=== PATIENT | female | born 1940 | race African-American/Black ===

== ENCOUNTER 2019-07-14 10:45 | Outpatient (CLI) | payer MEDICARE, MEDICAID ==
--- NOTE | 2019-07-15 08:49 | MMO ---
Bilateral MAMMO Bilat Screen [facility]. CLINICAL HISTORY: Patient is 79 years old and is seen for screening. The patient has no family history of breast cancer. The patient has a history of colon cancer 2008. VIEWS: The views performed were: bilateral craniocaudal with tomosynthesis and bilateral mediolateral oblique with tomosynthesis. FILMS COMPARED: The present examination has been compared to a prior imaging study performed at [facility] on 02/03/2008. This study has been interpreted with the assistance of computer-aided detection. MAMMOGRAM FINDINGS: The breasts are heterogeneously dense, which could obscure a lesion on mammography. There are no suspicious masses, suspicious calcifications, or new areas of architectural distortion. IMPRESSION: THERE IS NO MAMMOGRAPHIC EVIDENCE OF MALIGNANCY. A ROUTINE FOLLOW-UP MAMMOGRAM IN 1 YEAR IS RECOMMENDED. THE RESULTS OF THIS EXAM WERE SENT TO THE PATIENT. ACR BI-RADS Category 1 - Negative MAMMOGRAPHY NOTE: 1. A negative mammogram report should not delay a biopsy if a dominant of clinically suspicious mass is present. 2. Approximately 10% to 15% of breast cancers are not detected by mammography. 3. Adenosis and dense breasts may obscure an underlying neoplasm. Reported by: Luz Maria CALDWELL Electonically Signed: [id number]
== END 2019-07-14 10:46 | disposition home or self-care (01) ==
LOC: BICMAMMO 10:45
PROVIDERS: ATTEND Family Medicine
DX: Z12.31 Encounter for screening mammogram for malignant neoplasm of breast (principal); Z85.038 Personal history of other malignant neoplasm of large intestine
CPT/HCPCS: 77063; 77067

== ENCOUNTER 2020-05-03 09:32 | Inpatient (IN) | payer MEDICARE, MEDICAID ==
[2020-05-03 10:15] LABS: #Lymphocytes 1.3 thou/uL (1.20-3.40); #Monocytes 0.8 thou/uL (0.11-0.59); %Basophils 0.2 % (0.0-1.0); %Eosinophils 0.2 % (0.0-10.0); %Lymphocytes 9.9 % (21.0-51.0); %Monocytes 5.9 % (0.0-10.0); %Neutrophils 83.9 % (42.0-75.0); Hemoglobin 14.5 g/dL (12.0-16.0); Mean Corpuscular HGB CONC 32.5 g/dL (32.0-36.0); Mean Corpuscular Hemoglobin 27.7 pg (27.0-31.0); Mean Corpuscular Volume 85.3 fL (78.0-98.0); Mean Platelet Volume 8.9 fL (7.4-10.4); Platelet Count 233 thou/uL (130-400); RBC Distribution Width 13.3 % (11.5-14.5); Red Blood Cell (RBC) Count 5.23 mill/uL (4.20-5.40); White Blood Cell (WBC) Count 13.1 thou/uL (4.8-10.8)
--- NOTE | 2020-05-03 10:16 | RAD ---
EXAM: Single view of the chest HISTORY: Altered mental status COMPARISON: 09/12/2013 FINDINGS: Single view of the chest shows a normal sized cardiomediastinal silhouette. A right-sided Mediport is seen with its tip in the superior vena cava. There is a stable calcified granuloma in the left lung base. No infiltrates or pleural effusions are seen. The bones are unremarkable IMPRESSION: No evidence of acute cardiopulmonary disease
[2020-05-03] MEDS ORDERED: cefTRIAXone\\ROCEPHIN 2 GM VIAL ONE (10:26)
[2020-05-03 10:34] LABS: Bacteria/HPF 4+ HPF (None Seen); Bilirubin Negative (Negative); Blood, Urine 2+ (Negative); Clarity Extra Turbid (Clear); Glucose, Urine (Dipstick) Normal (Negative); Ketone, Urine Trace mg/dL (Negative); Leukocyte 500 Leu/uL (Negative); Nitrite Negative (Negative); Protein, Urine (Dipstick) 300 mg/dL (Neg-Trace); RBC/HPF Greater than 50 HPF (0-3); Specific Gravity, Urine 1.015 (1.002-1.036); Squamous Epithelial None Seen HPF (0-3); Urobilinogen Normal mg/dL (Less than 2); WBC/HPF Greater than 50 HPF (0-3); pH, Urine 6.5 (5.0-9.0)
[2020-05-03 10:40] LABS: ALT (SGPT) 43 U/L (8-55); AST (SGOT) 53 U/L (5-34); Albumin 4.1 g/dL (3.4-4.8); Alkaline Phosphatase 56 U/L (40-110); Anion Gap 24 mmol/L (10-20); Bilirubin, Total 1.6 mg/dL (0.2-1.2); CK (CPK) 863 U/L (29-168); Calc. Creatinine Clearance 0 mL/min (70-130); Carbon Dioxide 16 mmol/L (23-31); Chloride 102 mmol/L (98-107); Estimated GFR-MDRD 12; Globulin 4.5 g/dL (2.4-3.5); Glucose 224 mg/dL (83-110); Potassium 3.8 mmol/L (3.5-5.1); Protein, Total 8.6 g/dL (6.0-8.3); Sodium 138 mmol/L (136-145)
[2020-05-03 10:52] LABS: BUN (Urea Nitrogen) 115 mg/dL (9.8-20.1)
--- NOTE | 2020-05-03 10:52 | CT ---
CT BRAIN WITHOUT CONTRAST: HISTORY: Altered mental status FINDINGS: No evidence of acute infarct, hemorrhage, midline shift or abnormal extra-axial fluid collections is seen. The ventricular size is appropriate and the basilar cisterns are patent. The bony calvarium is intact. The visualized paranasal sinuses and mastoid air cells are well aerated. IMPRESSION: No CT evidence of acute intracranial process.
[2020-05-03] MEDS ORDERED: Aspirin Chewable 81 MG TAB ONE (11:05)
[2020-05-03 11:09] LABS: CKMB 8.2 ng/mL (0-6.6)
[2020-05-03] MEDS ORDERED: Vancomycin HCl 1.75 GM in Sodium Chloride 0.9% 500 ML IVPB SCH (11:30)
[2020-05-03] MEDS ORDERED: Sodium Bicarbonate 150 MEQ in Dextrose 5% in Water 1,000 ML IV SCH (12:00)
[2020-05-03] MEDS ORDERED: Potassium Chloride 20 MEQ TAB PO SCH (12:45)
[2020-05-03] MEDS: Sodium Bicarbonate 150 MEQ in Dextrose 5% in Water 1,000 ML IV SCH (12:45)
--- NOTE | 2020-05-03 12:49 | CT ---
CT ABDOMEN AND PELVIS WITHOUT CONTRAST: Date: 05/03/2020 PROVIDED CLINICAL HISTORY: Altered mental status, shaking, decreased appetite, burning upon urination. FINDINGS: Comparison with 09/12/2013. FINDINGS: There are patchy foci of ground-glass opacity and associated interstitial thickening is seen involvin g the visualized portions of left greater than right lungs. There is conspicuous gallbladder distention without surrounding inflammatory change. The solid abdomi nal organs are suboptimally evaluated in the absence of IV contrast material, but demonstrate an unre markable unenhanced CT appearance. There is no evidence for urinary tract calculi or hydronephrosis. Vascular calcifications along the course of the left ureter simulate ureteral calcifications. Postoperative changes of left lower quadrant colostomy are demonstrated. There is no bowel dilatation , inflammatory fat stranding, free fluid, or free air apparent. The osseous structures demonstrate no concerning lytic or blastic lesions. IMPRESSION: 1. Basilar lung findings compatible with pneumonia and typical for COVID pneumonia. 2. Conspicuous gallbladder distention without evident pericholecystic inflammatory change. Consider gallbladder ultrasound if indicated. 3. Other findings as described. POS: MELISSA
[2020-05-03] MEDS ORDERED: Metoprolol Tartrate 25 MG TAB PO SCH (13:15)
--- NOTE | 2020-05-03 13:40 | NM ---
Radionucleotide lung perfusion scan HISTORY: Dyspnea. FINDINGS: Symmetric uptake with good perfusion gradient. Very small subtle areas of diminished radiot racer uptake project over the superior segment of the right lower lobe and the superior segment of the left lower lobe. They are well below the size of a segment. Ventilation study was not performed. IMPRESSION : Exam is not high probability for pulmonary embolus. Technically it is indeterminate, although with th e CT appearance of COVID pneumonia at the lung bases on recent CT, the perfusion abnormalities are much more likely related to the infiltrates from pneumonitis.
--- NOTE | 2020-05-03 13:45 | RAD ---
Left hip 2 HISTORY: Pain. FINDINGS: Mild joint space narrowing, osteophytosis, and subchondral sclerosis. Slight irregularity o f the articular surface of the femoral head. Cortex is intact. No acute fracture, dislocation, or aggressive osseous erosions. IMPRESSION : Mild osteoarthritic changes left hip.
[2020-05-03 14:32] LABS: SARS-CoV-2 NAA Rapid Test DETECTED (NotDetected)
[2020-05-03 14:37] LABS: Lactic Acid 1.9 mmol/L (0.5-2.2)
[2020-05-03 14:42] LABS: CRP (Inflammatory) 9.72 mg/dL (= or < 0.5)
[2020-05-03 14:46] LABS: Troponin I 0.099 ng/mL (< 0.028)
[2020-05-03] MEDS ORDERED: Metoprolol Tartrate 25 MG TAB ONE (14:49)
[2020-05-03] MEDS: Meropenem 500 MG in Sodium Chloride 0.9% 100 ML IVPB SCH (15:56)
[2020-05-03] MEDS: Heparin 5,000 UNITS/ML VIAL SC SCH ×2 (15:59→19:59)
--- NOTE | 2020-05-03 19:56 | CON ---
DATE OF CONSULTATION: REASON FOR CONSULTATION: COVID infection. HISTORY OF PRESENT ILLNESS: A 80-year-old with history of rectal adenocarcinoma, diagnosed in 2012. The patient had liver mets and I think she was referred to [place]. We do not have records of the treatment, that she had probably low abdominal peritoneal resection and followed by chemotherapy. She still has a port in the right subclavian position and was brought in because of feeling very weak for the past 3 to 4 days and did not have any fever, chills, or headaches. No shortness of breath. No cough. No abdominal pain or diarrhea. No genitourinary symptoms or bleeding. On arrival, BP 118/83, respiratory rate 18, temperature 97.5, O2 saturations were 99 on room air. Other findings included a white cell count of 13.1, hemoglobin 14, platelets 233, and 83% neutrophils. D-dimer greater than 20. Ferritin was 3700. CRP was 9.72. The LDH was 320. She had an abdomen and pelvis CT and showed basilar lung findings, consistent with COVID pneumonia. Some gallbladder distention. The patient had patchy ground-glass opacities and that prompted the COVID test, which was positive. Currently, Ms. Willson is awake and in no distress. She keeps a kind of flexed position of her neck and I thought initially that she would be a difficult to interview, but she has a very sharp and prompt answers to pretty much everything. She denies any headaches and she has no shortness of breath. She has no abdominal symptoms. She is voiding without difficulty. No appendicular symptoms and no neurological symptoms. MEDICAL HISTORY: 1. Stage IV adenocarcinoma of the colorectum, status post low anterior abdominal peritoneal resection in [place] and chemotherapy and this was in 2012, in the face of liver mets. She may have had liver mets resected, not clear to me, but nonetheless she is doing quite well and stated that she is cured or at least in remission. 2. History of hypertension. 3. CKD. 4. Ischemic colitis. 5. Dyslipidemia. ALLERGY HISTORY: Negative. MEDICATION LIST: At the moment, she is on: 1. Meropenem. 2. Folic acid. FAMILY HISTORY: Not available. SOCIAL HISTORY: Never smoker. She lives in [place]. PHYSICAL EXAMINATION: VITAL SIGNS: T-max 97.9, BP 115/68, pulse 101, and respirations 22. SKIN: Normal. The patient has a port in the right subclavian position, which is accessed for at the moment, and she is voiding spontaneously. There is no lymphadenopathy. HEENT: Ocular movements are dysconjugate, chronically so. Oral cavity with no [place] teeth remaining. NECK: Supple. No jugular vein distention. LUNGS: Symmetric air entry. No crackles or wheezing. HEART: S1 and S2. Regular rate. No S3 or S4. ABDOMEN: Soft, not distended or tender. No ascites. No bladder distention. EXTREMITIES: No joint inflammatory activity and no back tenderness. She is able to move extremities. She has 2+ edema in lower extremities. Pulses are 1+ in dorsalis pedis. Plantar responses are flexor. She has somewhat dystonic movements in the neck area. LABORATORY DATA: White cell count has been discussed above and the ferritin was 3700. ASSESSMENT: 1. Colorectal cancer with liver mets, in remission after surgical resection and chemotherapy 7 years ago. 2. Now weakness. 3. Mild leukocytosis with COVID positive status. DISCUSSION: The patient most likely has a COVID infection as the sole cause of her symptoms. I do not think there is evidence to suggest a bacterial infection at this point in time except for abnormal urinalysis, but she is asymptomatic. We will continue with meropenem until tomorrow at least when we get results of cultures. She does not meet criteria for any intervention for COVID, although she does have clinical variables that indicate a high risk for further decompensation in the ensuing days, so she will have to be monitored here for a while and check her inflammatory markers. She could potentially start developing hypoxemia in the next 24 to 48 hours and have to initiate remdesivir and Decadron treatment. She is on heparin t.i.d., probably because of renal function. The reason for renal function decrease is probably some [id number] renal failure associated with the acute illness and hopefully will see improvement going forward. Job ID: [id number]
[2020-05-03] MEDS: Famotidine 20 MG TAB PO SCH (19:58)
[2020-05-03] MEDS: Zinc Sulfate 220 MG CAP PO SCH (19:58)
[2020-05-03] MEDS: Ascorbic Acid 500 mg Chewable Tablet PO SCH (19:58)
[2020-05-03] MEDS: Metoprolol Tartrate 25 MG TAB PO SCH (19:59)
[2020-05-03] MEDS ORDERED: Folic Acid 1 MG TAB PO SCH (21:00)
[2020-05-03] MEDS ORDERED: Famotidine 20 MG TAB PO SCH (21:00)
--- NOTE | 2020-05-03 21:08 | HP ---
PRIMARY CARE PHYSICIAN: Sigifredo Silveira MD CHIEF COMPLAINT: Weakness. HISTORY OF PRESENT ILLNESS: The patient is a 80-year-old female with past medical history significant for hypertension, rectal cancer, urinary continence, and iron deficiency. She presents to the ER today after the daughter said she was not acting right. She states she has in a week had decreased food intake. She did fall 2 nights ago, and was found on the floor next to her bed. The patient states currently she does not have any pain other than hip pain from her fall. No sick contacts. Has not had a fever at home. No abdominal pain. No chest pain. She states normal bowel patterns in her colostomy. Normal urinary patterns. When asked how she feels, she feels tired. She just states that she has been too tired to really eat and drink much. Today in the ER, they gave her a dose of vancomycin, aspirin 324 mg, ceftriaxone, and 2 L of normal saline. They performed a chest x-ray, brain CT, abdomen and pelvis CT, and EKG. PAST MEDICAL HISTORY: Hypertension, ovarian cancer, rectal cancer, arthritis of her knee, insomnia, urinary incontinence, iron deficiency, chronic kidney disease stage 3, and scoliosis. PAST SURGICAL HISTORY: Appendectomy, colostomy, and hysterectomy. ALLERGIES: NO KNOWN DRUG ALLERGIES. MEDICATIONS: 1. Ferrous sulfate 325 mg once daily. 2. Wellbutrin 150 mg daily. 3. Hydrochlorothiazide 25 mg daily. 4. Metoprolol tartrate 25 mg twice a day. SOCIAL HISTORY: The patient lives at home with her granddaughter and two great grand kids. She does not work. She denies any smoking, alcohol, or drug use. FAMILY HISTORY: Father passed at 27 years old. Mother passed at 68 years old after diabetes, heart disease. Sister passed from diabetes. REVIEW OF SYSTEMS: All other review of systems negative unless noted in the HPI. PHYSICAL EXAMINATION: VITAL SIGNS: Blood pressure 120/64, pulse 98, respiratory rate 16, temperature 97.5, and O2 saturation 98% on room air. GENERAL: A pleasant, alert, oriented, in no acute distress. HEENT: Eyes; extraocular muscles intact. No nystagmus. PERRLA. HENT; clear. Nose; clear. No discharge. No lymphadenopathy. Mucous membranes moist. CARDIOVASCULAR: Regular rate and rhythm. No murmurs, no clicks, no rubs. CHEST: MediPort in place on the right side of the chest wall. RESPIRATORY: Clear to auscultation bilaterally. Symmetrical chest rise. No rhonchi, no wheezes, no rales. GASTROINTESTINAL: Soft, nontender. Colostomy bag to the left lower side. NEUROLOGIC: Alert and oriented x3. Cranial nerves 2 through 12 grossly intact. EXTREMITIES: Chronic stasis dermatitis on the right side on the lower extremity , left extremity larger than right with pain upon palpation. LABS AND IMAGING DATA: The brain CT by my review showed no CT evidence of any acute intracranial process. EKG by my review showed sinus tach previously at 120. Chest x-ray showed no evidence of acute cardiopulmonary disease. Abdomen and pelvis CT by my review shows basal lung findings compatible with pneumonia and typical for COVID pneumonia conspicuous gallbladder distention without evidence of pericholecystic inflammatory change. Her white blood cells 13.1, neutrophils 83.9. D-dimer greater than 20. Sodium 138, potassium 3.8, carbon dioxide 16, anion gap 24, BUN 115, creatinine 4.1, GFR 12, glucose 224, lactic acid 2.4, total bilirubin 1.6, AST 53, creatine kinase 63, CK-MB 8.2, troponin 0.109. Urine; clarity actually turbid, protein 300, ketones trace, blood 2+, leukocyte esterase 500, urine rbc greater than 50, urine white blood cells greater than 50, 4+ bacteria, no squamous epithelial cells. IMPRESSION AND PLAN: 1. Toxic metabolic encephalopathy, multifactorial. CT of the brain has been negative. Continue neuro checks q.4 hours. Await blood cultures and urine cultures. Recheck labs in the morning. 2. Severe sepsis due to UTI. Continue IV antibiotics. We will renally dose. 3. Acute kidney injury on chronic kidney disease 3. Rule out obstruction. Check postvoid residual. We will use IV hydration. We will hold her hydrochlorothiazide and avoid any nephrotoxic medications. 4. Metabolic acidosis/ lactic acidosis. Continue her on bicarb drip. Recheck labs in the morning. 5. Elevated CK and elevated troponin may be due to dehydration status. The patient denies any chest pain at this time. We will obtain an echo and continue to trend troponins. 6. Hypertension. Restart patient on her home medication, metoprolol, and also on any p.r.n. antihypertensives as needed. We are going to hold her hydrochlorothiazide at this time. 7. Anxiety. 8. Degenerative joint disease. The patient does have a history of arthritic issues. However, she did fall on that left hip 2 nights ago. We will obtain a hip x- ray to ensure there is no fracture. 9. Possible COVID-19. CT shows lung changes that are consistent with covid pneumonitis. It could possibly be the reason her D-dimer is elevated. We will attempt to get a V/Q scan and also venous Doppler on her lower extremities due to her left leg being larger than her right with some pain which she states normally is not swollen. The patient will be placed on heparin 3 times a day for deep venous thrombosis prophylaxis and elevated D-dimer. 10. SCDs will be held at this time due to the swelling. GI prophylaxis includes Pepcid twice a day. The patient wishes to be a full code. Her surrogate decision maker is her granddaughter. The patient has been discussed with Dr. Adams. Pt was seen and examined. Some rhonchi at bases. Labs, A & P reviewed. I agree with the above note. COVID positive. Case d/w daughter. Eliezer Angie Job ID: [id number] MTDD
[2020-05-04] MEDS: Meropenem 500 MG in Sodium Chloride 0.9% 100 ML IVPB SCH ×2 (01:05→14:44)
[2020-05-04] MEDS: Sodium Bicarbonate 150 MEQ in Dextrose 5% in Water 1,000 ML IV SCH ×2 (01:05→09:57)
[2020-05-04 06:24] LABS: #Monocytes 0.8 thou/uL (0.11-0.59); #Neutrophils 7.2 thou/uL (1.40-6.50); %Basophils 0.3 % (0.0-1.0); %Eosinophils 0.4 % (0.0-10.0); %Monocytes 8.8 % (0.0-10.0); %Neutrophils 79.5 % (42.0-75.0); Hemoglobin 12.4 g/dL (12.0-16.0); Mean Corpuscular HGB CONC 33.5 g/dL (32.0-36.0); Mean Corpuscular Hemoglobin 28.6 pg (27.0-31.0); Mean Corpuscular Volume 85.6 fL (78.0-98.0); Mean Platelet Volume 8.7 fL (7.4-10.4); Platelet Count 180 thou/uL (130-400); Red Blood Cell (RBC) Count 4.34 mill/uL (4.20-5.40)
[2020-05-04 06:52] LABS: Anion Gap 17 mmol/L (10-20); BUN (Urea Nitrogen) 88 mg/dL (9.8-20.1); Calc. Creatinine Clearance 20 mL/min (70-130); Calcium 8.1 mg/dL (7.8-10.44); Carbon Dioxide 25 mmol/L (23-31); Chloride 103 mmol/L (98-107); Estimated GFR-MDRD 20; Glucose 190 mg/dL (83-110); Potassium 3.2 mmol/L (3.5-5.1); Sodium 142 mmol/L (136-145)
[2020-05-04 06:56] LABS: ALT (SGPT) 34 U/L (8-55); AST (SGOT) 53 U/L (5-34); Alkaline Phosphatase 46 U/L (40-110); Bilirubin, Direct 0.5 mg/dL (0.1-0.3); Bilirubin, Total 0.8 mg/dL (0.2-1.2); Protein, Total 6.4 g/dL (6.0-8.3)
[2020-05-04] MEDS: Folic Acid 1 MG TAB PO SCH (07:55)
[2020-05-04] MEDS: Heparin 5,000 UNITS/ML VIAL SC SCH ×3 (07:55→21:10)
[2020-05-04] MEDS: Cyanocobalamin (Vitamin B-12) 1,000 MCG TAB PO SCH (07:55)
[2020-05-04] MEDS: Metoprolol Tartrate 25 MG TAB PO SCH ×4 (07:56→21:12)
[2020-05-04] MEDS: Acetaminophen 325 MG TAB PO PRN (08:09)
[2020-05-04] MEDS ORDERED: Prevnar 13-Val Conj/PF 0.5 ML SYRINGE IM ONE (09:00)
[2020-05-04] MEDS ORDERED: Cyanocobalamin (Vitamin B-12) 1,000 MCG TAB PO SCH (09:00)
[2020-05-04] MEDS ORDERED: Sodium Chloride 0.9% 500 ML IV SCH (10:00)
[2020-05-04] MEDS ORDERED: Sodium Chloride 0.9% 1,000 ML IV SCH (10:00)
[2020-05-04] MEDS: Potassium Chloride 10 MEQ in Dextrose 5 % And 0.9 % NaCl 1,000 ML IV SCH ×2 (11:22→21:10)
[2020-05-04] MEDS ORDERED: Potassium Chloride 20 MEQ TAB PO SCH (12:00)
--- NOTE | 2020-05-04 18:55 | PDOC.HOSPP ---
- Subjective Encounter Date: 05/04/20 Encounter Time: 18:00 Subjective: Patient seen and examined for Sepsis/PERRI. Intermittent confusion. Overall mentation improving. No N/V. Poor appetite. No new complaints. No overnight events - Objective Vital Signs & Weight: Vital Signs (12 hours) Temp Pulse Resp BP BP BP BP 05/04/20 17:59 96 96/47 L 05/04/20 17:35 101 H 91/52 L 05/04/20 15:57 99.2 F 91 20 94/59 L 05/04/20 15:43 83/59 L 97/56 L 05/04/20 13:36 95/57 L 05/04/20 11:45 98.4 F 96 22 H 94/51 L 05/04/20 11:34 94/51 L 83/47 L 05/04/20 10:47 82/51 L 05/04/20 10:00 88/50 L 05/04/20 09:45 98.9 F 85 83/49 L 05/04/20 08:09 100.6 F H 105 H 20 98/53 L Pulse Ox 05/04/20 17:59 05/04/20 17:35 05/04/20 15:57 98 05/04/20 15:43 05/04/20 13:36 05/04/20 11:45 96 05/04/20 11:34 05/04/20 10:47 05/04/20 10:00 05/04/20 09:45 05/04/20 08:09 96 Weight Admit Weight 170 lb Weight 170 lb I&O: 05/03/20 05/04/20 05/05/20 06:59 06:59 06:59 Intake Total 2240 2840 Output Total 1275 900 Balance 965 1940 Result Diagrams: 05/05/20 05:13 05/05/20 05:13 Additional Labs: Microbiology 05/03/20 10:17 Venous blood - Right Hand Blood Culture - Preliminary Specimen has been received and culture in progress. No Growth to date. 05/03/20 10:05 Port - Right external jugular vein Blood Culture - Preliminary Specimen has been received and culture in progress. No Growth to date. 05/03/20 09:57 Urine Straight Catheter Urine Culture - Preliminary Laboratory Tests 05/03/20 05/03/20 05/03/20 09:57 10:04 12:41 D-Dimer Greater than 20.00 H Ferritin C-Reactive Protein Urine WBC Greater than 50 A Urine Bacteria 4+ A SARS-CoV-2 Rap RNA(RT-PCR) DETECTED A* 05/03/20 05/03/20 14:10 14:10 D-Dimer Ferritin 3752.41 H C-Reactive Protein 9.72 H Urine WBC Urine Bacteria SARS-CoV-2 Rap RNA(RT-PCR) Radiology Reviewed by me: Yes (CT abd - reviewed) EKG Reviewed by me: Yes (Tele SR) Hospitalist ROS - Review of Systems Respiratory: denies: cough, dry, shortness of breath, hemoptysis, SOB with excertion, pleuritic pain, sputum, wheezing, other Cardiovascular: denies: chest pain, palpitations, orthopnea, paroxysmal noc. dyspnea, edema, light headedness, other - Medication Medications: Active Medications Generic Name Dose Route Start Last Admin Trade Name Freq PRN Reason Stop Dose Admin Acetaminophen 650 mg 05/03/20 12:54 05/04/20 08:09 Tylenol PO 650 mg Q4H PRN Administration Headache/Fever/Mild Pain (1-3) Ascorbic Acid 1,000 mg 05/03/20 21:00 05/03/20 19:58 Vitamin C PO 1,000 mg HS PAMELA Administration Cyanocobalamin 1,000 mcg 05/04/20 09:00 05/04/20 07:55 Vitamin B-12 PO 1,000 mcg DAILY PAMELA Administration Famotidine 20 mg 05/03/20 21:00 05/03/20 19:58 Pepcid PO 20 mg Q24HR PAMELA Administration Folic Acid 1 mg 05/04/20 09:00 05/04/20 07:55 Folvite PO 1 mg DAILY PAMELA Administration Heparin Sodium (Porcine) 5,000 units 05/03/20 15:00 05/04/20 14:44 Heparin SC 5,000 units TID PAMELA Administration Meropenem 500 mg/ Sodium 100 mls @ 200 mls/hr 05/03/20 14:00 05/04/20 14:44 Chloride IVPB 100 mls 0200,1400 PAMELA Administration Potassium Chloride 10 meq/ 1,005 mls @ 125 mls/hr 05/04/20 10:00 05/04/20 11: 22 Dextrose/Sodium Chloride IV 1,005 mls .Q8H3M PAMELA Administration Metoprolol Tartrate 12.5 mg 05/04/20 09:00 05/04/20 10:18 Lopressor PO Not Given BID PAMELA Sodium Chloride 10 ml 05/03/20 21:00 05/04/20 07:57 Flush - Normal Saline IVF 10 ml Q12HR PAMELA Administration Zinc Sulfate 220 mg 05/03/20 21:00 05/03/20 19:58 Zinc Sulfate PO 220 mg HS PAMELA Administration - Exam General Appearance: ill appearing Heart: RRR, no gallops, no rubs, normal peripheral pulses Respiratory: no wheezes, normal chest expansion, rales, rhonchi Gastrointestinal: soft, non-tender, no guarding, no rigidity Extremities: no cyanosis, no clubbing, no edema Extremities - other findings: no calf tenderness Neurological: no new deficit Psychiatric: A&O x 3, somnolent Psychiatric - other findings: with intermittent confusion Hosp A/P - Plan DVT proph w/heparin Toxic metabolic encephalopathy, multifactorial. Severe sepsis due to COVID Pneumonia/UTI - POA PERRI on CKD 3/Dehydration Metabolic acidosis/ lactic acidosis. Elevated CK Hypokalemia HTN Anxiety DJD Gallbladder distention h/o Colon CA PLAN: ID input appreciated DC Bicarb drip Renal function improving Replace Potassium Change IVF to D5NS with 10 meq KCL Cont IV Meropenem Reduce Metoprolol to 12.5 mg BID Monitor LFTs AM labs
[2020-05-04] MEDS: Zinc Sulfate 220 MG CAP PO SCH (21:10)
[2020-05-04] MEDS: Ascorbic Acid 500 mg Chewable Tablet PO SCH (21:10)
[2020-05-04] MEDS: Famotidine 20 MG TAB PO SCH (21:11)
[2020-05-05] MEDS: Meropenem 500 MG in Sodium Chloride 0.9% 100 ML IVPB SCH ×2 (02:40→14:35)
[2020-05-05 05:41] LABS: #Lymphocytes 1.3 thou/uL (1.20-3.40); #Monocytes 0.9 thou/uL (0.11-0.59); #Neutrophils 4.8 thou/uL (1.40-6.50); %Basophils 0.5 % (0.0-1.0); %Eosinophils 0.4 % (0.0-10.0); %Lymphocytes 18.5 % (21.0-51.0); %Monocytes 12.4 % (0.0-10.0); %Neutrophils 68.2 % (42.0-75.0); Hemoglobin 12.6 g/dL (12.0-16.0); Mean Corpuscular HGB CONC 32.7 g/dL (32.0-36.0); Mean Corpuscular Hemoglobin 28.6 pg (27.0-31.0); Mean Corpuscular Volume 87.6 fL (78.0-98.0); Mean Platelet Volume 8.4 fL (7.4-10.4); Platelet Count 177 thou/uL (130-400)
[2020-05-05 06:05] LABS: Anion Gap 13 mmol/L (10-20); BUN (Urea Nitrogen) 54 mg/dL (9.8-20.1); Calc. Creatinine Clearance 30 mL/min (70-130); Calcium 8.1 mg/dL (7.8-10.44); Carbon Dioxide 28 mmol/L (23-31); Chloride 107 mmol/L (98-107); Estimated GFR-MDRD 32; Glucose 160 mg/dL (83-110); Sodium 145 mmol/L (136-145)
[2020-05-05 06:12] LABS: ALT (SGPT) 29 U/L (8-55); AST (SGOT) 46 U/L (5-34); Albumin 2.7 g/dL (3.4-4.8); Alkaline Phosphatase 40 U/L (40-110); Bilirubin, Direct 0.3 mg/dL (0.1-0.3); Bilirubin, Total 0.5 mg/dL (0.2-1.2); Protein, Total 5.8 g/dL (6.0-8.3)
[2020-05-05] MEDS: Potassium Chloride 10 MEQ in Dextrose 5 % And 0.9 % NaCl 1,000 ML IV SCH (06:15)
--- NOTE | 2020-05-05 06:21 | PDOC.HOSPP ---
- Subjective Encounter Date: 05/05/20 Encounter Time: 09:30 Subjective: Patient seen and examined for Sepsis/AMS. Mentation slowly improving. No new focal deficits. No new complaints. No overnight events - Objective Vital Signs & Weight: Vital Signs (12 hours) Temp Pulse Resp BP Pulse Ox 05/04/20 21:10 98.4 F 111 H 18 106/60 97 Weight Admit Weight 170 lb Weight 170 lb I&O: 05/03/20 05/04/20 05/05/20 06:59 06:59 06:59 Intake Total 2240 2840 Output Total 1275 900 Balance 965 1940 Result Diagrams: 05/05/20 05:13 05/05/20 05:13 Additional Labs: Laboratory Tests 05/05/20 05/05/20 05/05/20 03:30 05:13 05:13 D-Dimer 9.56 H Ferritin 2991.22 H C-Reactive Protein 7.50 H Microbiology 05/03/20 10:17 Venous blood - Right Hand Blood Culture - Preliminary Specimen has been received and culture in progress. No Growth to date. 05/03/20 10:05 Port - Right external jugular vein Blood Culture - Preliminary Specimen has been received and culture in progress. No Growth to date. 05/03/20 09:57 Urine Straight Catheter Urine Culture - Preliminary EKG Reviewed by me: Yes (Tele SR) Hospitalist ROS - Review of Systems Respiratory: denies: cough, dry, shortness of breath, hemoptysis, SOB with excertion, pleuritic pain, sputum, wheezing, other Cardiovascular: denies: chest pain, palpitations, orthopnea, paroxysmal noc. dyspnea, edema, light headedness, other - Medication Medications: Active Medications Generic Name Dose Route Start Last Admin Trade Name Freq PRN Reason Stop Dose Admin Acetaminophen 650 mg 05/03/20 12:54 05/04/20 08:09 Tylenol PO 650 mg Q4H PRN Administration Headache/Fever/Mild Pain (1-3) Ascorbic Acid 1,000 mg 05/03/20 21:00 05/04/20 21:10 Vitamin C PO 1,000 mg HS PAMELA Administration Cyanocobalamin 1,000 mcg 05/04/20 09:00 05/04/20 07:55 Vitamin B-12 PO 1,000 mcg DAILY PAMELA Administration Famotidine 20 mg 05/03/20 21:00 05/04/20 21:11 Pepcid PO 20 mg Q24HR PAMELA Administration Folic Acid 1 mg 05/04/20 09:00 05/04/20 07:55 Folvite PO 1 mg DAILY PAMELA Administration Heparin Sodium (Porcine) 5,000 units 05/03/20 15:00 05/04/20 21:10 Heparin SC 5,000 units TID PAMELA Administration Meropenem 500 mg/ Sodium 100 mls @ 200 mls/hr 05/03/20 14:00 05/05/20 02:40 Chloride IVPB 100 mls 0200,1400 PAMELA Administration Metoprolol Tartrate 12.5 mg 05/04/20 09:00 05/04/20 21:12 Lopressor PO Not Given BID PAMELA Sodium Chloride 10 ml 05/03/20 21:00 05/04/20 21:11 Flush - Normal Saline IVF 10 ml Q12HR PAMELA Administration Zinc Sulfate 220 mg 05/03/20 21:00 05/04/20 21:10 Zinc Sulfate PO 220 mg HS PAMELA Administration - Exam General Appearance: ill appearing Heart: RRR, no gallops, no rubs Respiratory: no rales, normal chest expansion, rhonchi Gastrointestinal: soft, non-tender, normal bowel sounds, no guarding, no rigidity Neurological: no new deficit Psychiatric: somnolent Hosp A/P - Plan plan discussed w/ family, PT/OT, speech therapy, respiratory therapy, DVT proph w/heparin Toxic metabolic encephalopathy, multifactorial Severe sepsis due to COVID Pneumonia/UTI PERRI on CKD 3/Dehydration -improving Metabolic acidosis/ lactic acidosis Elevated CK Hypokalemia HTN Anxiety DJD Gallbladder distention h/o Colon CA Swallow dysfunction - on modified diet PLAN: Change IVF to D5 1/2NS with 40 meq KCL @ 50 Replace Potassium Cont IV Meropenem - dose adjusted for renal function Urine cultures pending Cont Metoprolol 12.5 mg BID AM labs including CK GB USG when COVID resolved SNF Eval Update: Pt has persistent low BP. Will add low dose steroids for possible relative adrenal insufficiency.
[2020-05-05] MEDS: Heparin 5,000 UNITS/ML VIAL SC SCH ×3 (07:57→19:40)
[2020-05-05] MEDS: Folic Acid 1 MG TAB PO SCH (07:59)
[2020-05-05] MEDS: D5 1/2 NS w/40 mEq KCL 1,000 ML IV SCH (07:59)
[2020-05-05] MEDS: Cyanocobalamin (Vitamin B-12) 1,000 MCG TAB PO SCH (07:59)
[2020-05-05] MEDS: Metoprolol Tartrate 25 MG TAB PO SCH ×2 (07:59→20:21)
[2020-05-05] MEDS: Acetaminophen 325 MG TAB PO PRN (14:45)
[2020-05-05] MEDS ORDERED: Sodium Chloride 0.9% 500 ML IV SCH (16:30)
[2020-05-05] MEDS: Dexamethasone 4 MG TAB PO SCH (16:53)
[2020-05-05] MEDS: Zinc Sulfate 220 MG CAP PO SCH (19:41)
[2020-05-05] MEDS: Ascorbic Acid 500 mg Chewable Tablet PO SCH (19:41)
[2020-05-05] MEDS ORDERED: Famotidine 20 MG TAB PO SCH (21:00)
[2020-05-06] MEDS: Meropenem 500 MG in Sodium Chloride 0.9% 100 ML IVPB SCH ×2 (00:56→15:01)
[2020-05-06] MEDS: D5 1/2 NS w/40 mEq KCL 1,000 ML IV SCH ×2 (00:57→23:56)
[2020-05-06 05:29] LABS: #Monocytes 0.3 thou/uL (0.11-0.59); #Neutrophils 6.8 thou/uL (1.40-6.50); %Basophils 0.1 % (0.0-1.0); %Eosinophils 0.3 % (0.0-10.0); %Monocytes 3.4 % (0.0-10.0); %Neutrophils 84.2 % (42.0-75.0); Hemoglobin 11.5 g/dL (12.0-16.0); Mean Corpuscular HGB CONC 34.4 g/dL (32.0-36.0); Mean Corpuscular Hemoglobin 30.1 pg (27.0-31.0); Mean Corpuscular Volume 87.6 fL (78.0-98.0); Mean Platelet Volume 8.4 fL (7.4-10.4); Platelet Count 178 thou/uL (130-400); Red Blood Cell (RBC) Count 3.83 mill/uL (4.20-5.40); White Blood Cell (WBC) Count 8.1 thou/uL (4.8-10.8)
[2020-05-06 05:47] LABS: Anion Gap 11 mmol/L (10-20); BUN (Urea Nitrogen) 38 mg/dL (9.8-20.1); Calc. Creatinine Clearance 37 mL/min (70-130); Carbon Dioxide 26 mmol/L (23-31); Chloride 110 mmol/L (98-107); Estimated GFR-MDRD 39; Glucose 194 mg/dL (83-110); Potassium 3.9 mmol/L (3.5-5.1); Sodium 143 mmol/L (136-145)
[2020-05-06 05:53] LABS: ALT (SGPT) 37 U/L (8-55); AST (SGOT) 54 U/L (5-34); Albumin 2.5 g/dL (3.4-4.8); Alkaline Phosphatase 55 U/L (40-110); Bilirubin, Direct 0.2 mg/dL (0.1-0.3); Bilirubin, Total 0.3 mg/dL (0.2-1.2); CK (CPK) 184 U/L (29-168); Protein, Total 5.3 g/dL (6.0-8.3)
[2020-05-06] MEDS: Dexamethasone 4 MG TAB PO SCH ×2 (08:34→15:01)
[2020-05-06] MEDS: Multivit, Therapeutic 1 TAB PO SCH (08:34)
[2020-05-06] MEDS: Cyanocobalamin (Vitamin B-12) 1,000 MCG TAB PO SCH (08:34)
[2020-05-06] MEDS: Heparin 5,000 UNITS/ML VIAL SC SCH ×3 (08:34→20:52)
[2020-05-06] MEDS: Folic Acid 1 MG TAB PO SCH (08:34)
--- NOTE | 2020-05-06 08:54 | PDOC.HOSPP ---
- Subjective Encounter Date: 05/06/20 Encounter Time: 16:30 Subjective: Patient seen and examined for Sepsis/COVID. Mentation slowly improving. No new complaints. No overnight events - Objective Vital Signs & Weight: Vital Signs (12 hours) Temp Pulse Resp BP Pulse Ox 05/06/20 05:09 98.7 F 92 16 111/63 97 05/06/20 01:32 102 H 100/59 L 05/06/20 01:03 100 20 100/56 L 05/05/20 21:48 108/58 L Weight Admit Weight 170 lb Weight 177 lb 12.8 oz I&O: 05/05/20 05/06/20 05/07/20 06:59 06:59 06:59 Intake Total 4265 3316 Output Total 2225 1000 Balance 2040 2316 Result Diagrams: 05/07/20 04:40 05/07/20 04:40 Additional Labs: Microbiology 05/03/20 10:17 Venous blood - Right Hand Blood Culture - Preliminary NO GROWTH AT 48 HOURS 05/03/20 10:05 Port - Right external jugular vein Blood Culture - Preliminary NO GROWTH AT 48 HOURS 05/03/20 09:57 Urine Straight Catheter Urine Culture - Preliminary Gram Negative Alf Gram Negative Alf#2 Laboratory Tests 05/06/20 05:05 Creatine Kinase 184 H EKG Reviewed by me: Yes (Tele SR) Hospitalist ROS - Review of Systems Cardiovascular: denies: chest pain, palpitations, orthopnea, paroxysmal noc. dyspnea, edema, light headedness, other Gastrointestinal: denies: nausea, vomiting, abdominal pain, diarrhea, constipation, melena, hematochezia, other - Medication Medications: Active Medications Generic Name Dose Route Start Last Admin Trade Name Freq PRN Reason Stop Dose Admin Acetaminophen 650 mg 05/03/20 12:54 05/05/20 14:45 Tylenol PO 650 mg Q4H PRN Administration Headache/Fever/Mild Pain (1-3) Ascorbic Acid 1,000 mg 05/03/20 21:00 05/05/20 19:41 Vitamin C PO 1,000 mg HS PAMELA Administration Cyanocobalamin 1,000 mcg 05/06/20 09:00 05/06/20 08:34 Vitamin B-12 PO 1,000 mcg DAILY PAMELA Administration Dexamethasone 2 mg 05/05/20 17:00 05/06/20 08:34 Decadron PO 2 mg BID-WM PAMELA Administration Folic Acid 1 mg 05/06/20 09:00 05/06/20 08:34 Folvite PO 1 mg DAILY PAMELA Administration Heparin Sodium (Porcine) 5,000 units 05/03/20 15:00 05/06/20 08:34 Heparin SC 5,000 units TID PAMELA Administration Meropenem 500 mg/ Sodium 100 mls @ 200 mls/hr 05/03/20 14:00 05/06/20 00:56 Chloride IVPB 100 mls 0200,1400 PAMELA Administration Potassium Chloride/Dextrose/Sod Cl 1,000 mls @ 50 mls/hr 05/05/20 06:30 05/06 00:57 D5 1/2 Ns W/40 Meq Kcl IV 1,000 mls .Q20H PAMELA Administration Metoprolol Tartrate 12.5 mg 05/04/20 09:00 05/05/20 20:21 Lopressor PO Not Given BID PAMELA Multivitamins 1 tab 05/06/20 09:00 05/06/20 08:34 Theragran PO 1 tab DAILY PAMELA Administration Sodium Chloride 10 ml 05/03/20 21:00 05/06/20 08:35 Flush - Normal Saline IVF 10 ml Q12HR PAMELA Administration Zinc Sulfate 220 mg 05/03/20 21:00 05/05/20 19:41 Zinc Sulfate PO 220 mg HS PAMELA Administration - Exam General Appearance: ill appearing Neck: supple, no JVD Heart: no gallops, no rubs Respiratory: no wheezes, normal chest expansion, rhonchi Gastrointestinal: soft, non-tender Extremities: no cyanosis, no clubbing Hosp A/P - Plan DVT proph w/heparin, DVT proph w/SCDs Toxic metabolic encephalopathy, multifactorial Severe sepsis due to COVID Pneumonia/UTI PERRI on CKD 3/Dehydration -improving Metabolic acidosis/ lactic acidosis Relative adrenal insufficiency Elevated CK Hypokalemia HTN Anxiety DJD Gallbladder distention h/o Colon CA Swallow dysfunction - on modified diet PLAN: 05/06 Cont current IVF Await urine cultures AM labs including markers Cont other meds Cont Steroids 05/05 Change IVF to D5 1/2NS with 40 meq KCL @ 50 Replace Potassium Cont IV Meropenem - dose adjusted for renal function Urine cultures pending Cont Metoprolol 12.5 mg BID AM labs including CK GB USG when COVID resolved SNF Eval Update: Pt has persistent low BP. Will add low dose steroids for possible relative adrenal insufficiency.
[2020-05-06] MEDS: Metoprolol Tartrate 25 MG TAB PO SCH ×2 (09:05→21:28)
--- NOTE | 2020-05-06 17:29 | PRG ---
DATE OF SERVICE: 05/06/2020 SUBJECTIVE: Ms. Willson is saturating at 96% on room air. She feels okay, but keeps her head down. I asked her if she was depressed, she said no, that is how she is like. She is not vomiting. No abdominal pain. OBJECTIVE: VITAL SIGNS: T-max 98.6. She is saturating at 96% on room air. LUNGS: Clear. HEART: S1 and S2, regular rate. ABDOMEN: Soft, not distended. LABORATORY DATA: White cell count 8.1 and platelets 178. D-dimer down to 9.6. Ferritin is down and CRP is down as well. Currently, she is on Decadron. 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 We will go ahead and continue not intervening with any specific COVID medication and will discontinue meropenem. Maybe she can go home soon. In that case, I would discontinue Decadron. Job ID: [id number]
[2020-05-06] MEDS: Famotidine 20 MG TAB PO SCH (20:52)
[2020-05-06] MEDS: Ascorbic Acid 500 mg Chewable Tablet PO SCH (20:53)
[2020-05-06] MEDS: Zinc Sulfate 220 MG CAP PO SCH (20:53)
[2020-05-07 04:51] LABS: #Lymphocytes 1.4 thou/uL (1.20-3.40); #Monocytes 0.8 thou/uL (0.11-0.59); #Neutrophils 9.3 thou/uL (1.40-6.50); %Basophils 0.1 % (0.0-1.0); %Eosinophils 0.2 % (0.0-10.0); %Lymphocytes 11.9 % (21.0-51.0); %Monocytes 6.7 % (0.0-10.0); %Neutrophils 81.2 % (42.0-75.0); Hemoglobin 10.4 g/dL (12.0-16.0); Mean Corpuscular HGB CONC 32.4 g/dL (32.0-36.0); Mean Corpuscular Hemoglobin 28.4 pg (27.0-31.0); Mean Corpuscular Volume 87.7 fL (78.0-98.0); Mean Platelet Volume 8.4 fL (7.4-10.4); Platelet Count 193 thou/uL (130-400); RBC Distribution Width 12.9 % (11.5-14.5); Red Blood Cell (RBC) Count 3.66 mill/uL (4.20-5.40); White Blood Cell (WBC) Count 11.4 thou/uL (4.8-10.8)
[2020-05-07 05:09] LABS: ALT (SGPT) 46 U/L (8-55); AST (SGOT) 71 U/L (5-34); Albumin 2.5 g/dL (3.4-4.8); Alkaline Phosphatase 56 U/L (40-110); Anion Gap 10 mmol/L (10-20); BUN (Urea Nitrogen) 33 mg/dL (9.8-20.1); Bilirubin, Total 0.4 mg/dL (0.2-1.2); CRP (Inflammatory) 2.85 mg/dL (= or < 0.5); Calc. Creatinine Clearance 42 mL/min (70-130); Calcium 7.9 mg/dL (7.8-10.44); Carbon Dioxide 26 mmol/L (23-31); Chloride 107 mmol/L (98-107); Estimated GFR-MDRD 45; Globulin 2.7 g/dL (2.4-3.5); Glucose 143 mg/dL (83-110); Potassium 4.4 mmol/L (3.5-5.1); Protein, Total 5.2 g/dL (6.0-8.3); Sodium 139 mmol/L (136-145)
[2020-05-07] MEDS: Dexamethasone 4 MG TAB PO SCH ×2 (09:17→17:13)
[2020-05-07] MEDS: Cyanocobalamin (Vitamin B-12) 1,000 MCG TAB PO SCH (09:17)
[2020-05-07] MEDS: Heparin 5,000 UNITS/ML VIAL SC SCH ×3 (09:17→21:11)
[2020-05-07] MEDS: Multivit, Therapeutic 1 TAB PO SCH (09:17)
[2020-05-07] MEDS: Folic Acid 1 MG TAB PO SCH (09:17)
--- NOTE | 2020-05-07 09:31 | PDOC.HOSPP ---
- Subjective Encounter Date: 05/07/20 Encounter Time: 13:00 Subjective: Patient seen and examined for resp failure/Pneumonia. Feeling slightly better. No new complaints. No overnight events - Objective Vital Signs & Weight: Vital Signs (12 hours) Temp Pulse Resp BP Pulse Ox 05/07/20 04:00 98.3 F 90 14 116/73 97 05/07/20 00:10 91 99/60 Weight Admit Weight 170 lb Weight 177 lb 12.8 oz I&O: 05/06/20 05/07/20 05/08/20 06:59 06:59 06:59 Intake Total 3316 2230 Output Total 1000 1350 Balance 2316 880 Result Diagrams: 05/07/20 04:40 05/07/20 04:40 Additional Labs: Microbiology 05/03/20 10:17 Venous blood - Right Hand Blood Culture - Preliminary NO GROWTH AT 48 HOURS 05/03/20 10:05 Port - Right external jugular vein Blood Culture - Preliminary NO GROWTH AT 48 HOURS 05/03/20 09:57 Urine Straight Catheter Urine Culture - Preliminary Gram Negative Alf Proteus mirabilis Granulicatella adiacens EKG Reviewed by me: Yes (Tele SR) Hospitalist ROS - Review of Systems Respiratory: denies: cough, dry, shortness of breath, hemoptysis, SOB with excertion, pleuritic pain, sputum, wheezing, other Cardiovascular: denies: chest pain, palpitations, orthopnea, paroxysmal noc. dyspnea, edema, light headedness, other - Medication Medications: Active Medications Generic Name Dose Route Start Last Admin Trade Name Freq PRN Reason Stop Dose Admin Acetaminophen 650 mg 05/03/20 12:54 05/05/20 14:45 Tylenol PO 650 mg Q4H PRN Administration Headache/Fever/Mild Pain (1-3) Ascorbic Acid 1,000 mg 05/03/20 21:00 05/06/20 20:53 Vitamin C PO 1,000 mg HS PAMELA Administration Cyanocobalamin 1,000 mcg 05/06/20 09:00 05/07/20 09:17 Vitamin B-12 PO 1,000 mcg DAILY PAMELA Administration Dexamethasone 2 mg 05/05/20 17:00 05/07/20 09:17 Decadron PO 2 mg BID-WM PAMELA Administration Famotidine 20 mg 05/06/20 21:00 05/06/20 20:52 Pepcid PO 20 mg QPM PAMELA Administration Folic Acid 1 mg 05/06/20 09:00 05/07/20 09:17 Folvite PO 1 mg DAILY PAMELA Administration Heparin Sodium (Porcine) 5,000 units 05/03/20 15:00 05/07/20 09:17 Heparin SC 5,000 units TID PAMELA Administration Metoprolol Tartrate 12.5 mg 05/04/20 09:00 05/06/20 21:28 Lopressor PO Not Given BID PAMELA Multivitamins 1 tab 05/06/20 09:00 05/07/20 09:17 Theragran PO 1 tab DAILY PAMELA Administration Sodium Chloride 10 ml 05/03/20 21:00 05/06/20 20:55 Flush - Normal Saline IVF 10 ml Q12HR PAMELA Administration Zinc Sulfate 220 mg 05/03/20 21:00 05/06/20 20:53 Zinc Sulfate PO 220 mg HS PAMELA Administration - Exam General Appearance: ill appearing Heart: RRR, no gallops Respiratory: normal chest expansion, rales, rhonchi Gastrointestinal: non-tender, non-distended, no guarding, no rigidity Extremities: no cyanosis Hosp A/P - Plan DVT proph w/lovenox, GI proph Toxic metabolic encephalopathy, multifactorial Severe sepsis due to COVID Pneumonia/UTI PERRI on CKD 3/Dehydration -improving Metabolic acidosis/ lactic acidosis Relative adrenal insufficiency Elevated CK Hypokalemia HTN Anxiety DJD Gallbladder distention h/o Colon CA Swallow dysfunction - on modified diet PLAN: 05/07 DC IVF Meropenem dced per ID Start Ceftriaxone for for UTI - will change to PO at dc SNF eval Cont Dexamethasone - reduce dose DC to SNF when accepted - stable to dc 05/06 Cont current IVF Await urine cultures AM labs including markers Cont other meds Cont Steroids 05/05 Change IVF to D5 1/2NS with 40 meq KCL @ 50 Replace Potassium Cont IV Meropenem - dose adjusted for renal function Urine cultures pending Cont Metoprolol 12.5 mg BID AM labs including CK GB USG when COVID resolved SNF Eval Update: Pt has persistent low BP. Will add low dose steroids for possible relative adrenal insufficiency.
[2020-05-07] MEDS: Metoprolol Tartrate 25 MG TAB PO SCH ×2 (11:58→21:10)
[2020-05-07] MEDS: cefTRIAXone\\ROCEPHIN 1 GM in Sodium Chloride 0.9% 100 ML IVPB SCH (11:58)
[2020-05-07] MEDS: Famotidine 20 MG TAB PO SCH (21:09)
[2020-05-07] MEDS: Ascorbic Acid 500 mg Chewable Tablet PO SCH (21:09)
[2020-05-07] MEDS: Zinc Sulfate 220 MG CAP PO SCH (21:10)
[2020-05-08 05:59] LABS: #Lymphocytes 1.3 thou/uL (1.20-3.40); #Monocytes 0.8 thou/uL (0.11-0.59); #Neutrophils 10.2 thou/uL (1.40-6.50); %Basophils 0.3 % (0.0-1.0); %Eosinophils 0.3 % (0.0-10.0); %Lymphocytes 10.8 % (21.0-51.0); %Monocytes 6.1 % (0.0-10.0); %Neutrophils 82.6 % (42.0-75.0); Hemoglobin 10.8 g/dL (12.0-16.0); Mean Corpuscular HGB CONC 32.1 g/dL (32.0-36.0); Mean Corpuscular Hemoglobin 28.1 pg (27.0-31.0); Mean Corpuscular Volume 87.8 fL (78.0-98.0); Mean Platelet Volume 8.8 fL (7.4-10.4); Platelet Count 218 thou/uL (130-400); RBC Distribution Width 12.9 % (11.5-14.5); Red Blood Cell (RBC) Count 3.84 mill/uL (4.20-5.40); White Blood Cell (WBC) Count 12.3 thou/uL (4.8-10.8)
[2020-05-08 06:20] LABS: ALT (SGPT) 134 U/L (8-55); AST (SGOT) 196 U/L (5-34); Albumin 2.7 g/dL (3.4-4.8); Alkaline Phosphatase 117 U/L (40-110); Anion Gap 12 mmol/L (10-20); BUN (Urea Nitrogen) 36 mg/dL (9.8-20.1); Bilirubin, Total 0.3 mg/dL (0.2-1.2); Calc. Creatinine Clearance 46 mL/min (70-130); Calcium 8.6 mg/dL (7.8-10.44); Carbon Dioxide 27 mmol/L (23-31); Chloride 105 mmol/L (98-107); Estimated GFR-MDRD 50; Globulin 3.1 g/dL (2.4-3.5); Glucose 152 mg/dL (83-110); Protein, Total 5.8 g/dL (6.0-8.3); Sodium 139 mmol/L (136-145)
[2020-05-08] MEDS: Dexamethasone 4 MG TAB PO SCH (08:32)
[2020-05-08] MEDS: Heparin 5,000 UNITS/ML VIAL SC SCH ×2 (08:32→14:31)
[2020-05-08] MEDS: Multivit, Therapeutic 1 TAB PO SCH (08:32)
[2020-05-08] MEDS: Saccharomyces boulardii 250 MG CAP PO SCH (08:32)
[2020-05-08] MEDS: Cyanocobalamin (Vitamin B-12) 1,000 MCG TAB PO SCH (08:33)
[2020-05-08] MEDS: Folic Acid 1 MG TAB PO SCH (08:33)
[2020-05-08] MEDS: Metoprolol Tartrate 25 MG TAB PO SCH ×2 (08:56→22:05)
[2020-05-08] MEDS: cefTRIAXone\\ROCEPHIN 1 GM in Sodium Chloride 0.9% 100 ML IVPB SCH (11:08)
[2020-05-08] MEDS ORDERED: Acetaminophen 325 MG TAB PO PRN (16:41)
--- NOTE | 2020-05-08 18:49 | PDOC.HOSPP ---
- Subjective Encounter Date: 05/08/20 Encounter Time: 17:30 Subjective: Patient seen and examined for altered mentation with COVID infection. Mentation has significantly improved. She denies any chest pain shortness of breath palpitations nausea vomiting. Appetite is improving. - Objective Vital Signs & Weight: Vital Signs (12 hours) Temp Pulse Resp BP Pulse Ox 05/08/20 16:40 98.6 F 78 18 110/59 L 97 05/08/20 12:00 97.9 F 96 18 102/57 L 100 05/08/20 08:45 97.8 F 87 18 116/68 99 05/08/20 08:00 99 Weight Admit Weight 170 lb Weight 177 lb 12.8 oz I&O: 05/07/20 05/08/20 05/09/20 06:59 06:59 06:59 Intake Total 2230 1160 960 Output Total 1350 1450 1000 Balance 880 290 -40 Result Diagrams: 05/08/20 04:55 05/08/20 04:55 Additional Labs: Microbiology 05/03/20 10:17 Venous blood - Right Hand Blood Culture - Final NO GROWTH IN 5 DAYS 05/03/20 10:05 Port - Right external jugular vein Blood Culture - Final NO GROWTH IN 5 DAYS 05/03/20 09:57 Urine Straight Catheter Urine Culture - Final Proteus mirabilis Granulicatella adiacens Laboratory Tests 05/07/20 05/07/20 05/07/20 04:40 04:40 04:40 D-Dimer 10.14 H Ferritin 2322.54 H AST ALT Alkaline Phosphatase C-Reactive Protein 2.85 H 05/08/20 04:55 D-Dimer Ferritin AST 196 H ALT 134 H Alkaline Phosphatase 117 H C-Reactive Protein EKG Reviewed by me: Yes (Sinus rhythm) Hospitalist ROS - Review of Systems Respiratory: denies: cough, dry, shortness of breath, hemoptysis, SOB with excertion, pleuritic pain, sputum, wheezing, other Cardiovascular: denies: chest pain, palpitations, orthopnea, paroxysmal noc. dyspnea, edema, light headedness, other - Medication Medications: Active Medications Generic Name Dose Route Start Last Admin Trade Name Freq PRN Reason Stop Dose Admin Ascorbic Acid 1,000 mg 05/03/20 21:00 05/07/20 21:09 Vitamin C PO 1,000 mg HS PAMELA Administration Cyanocobalamin 1,000 mcg 05/06/20 09:00 05/08/20 08:33 Vitamin B-12 PO 1,000 mcg DAILY PAMELA Administration Dexamethasone 2 mg 05/08/20 08:00 05/08/20 08:32 Decadron PO 2 mg QAM-WM PAMELA Administration Famotidine 20 mg 05/06/20 21:00 05/07/20 21:09 Pepcid PO 20 mg QPM PAMELA Administration Folic Acid 1 mg 05/06/20 09:00 05/08/20 08:33 Folvite PO 1 mg DAILY PAMELA Administration Metoprolol Tartrate 12.5 mg 05/04/20 09:00 05/08/20 08:56 Lopressor PO Not Given BID [facility] Multivitamins 1 tab 05/06/20 09:00 05/08/20 08:32 Theragran PO 1 tab DAILY PAMELA Administration Saccharomyces Boulardii 250 mg 05/08/20 09:00 05/08/20 08:32 Florastor PO 250 mg DAILY PAMELA Administration Sodium Chloride 10 ml 05/03/20 21:00 05/08/20 08:33 Flush - Normal Saline IVF 10 ml Q12HR PAMELA Administration Zinc Sulfate 220 mg 05/03/20 21:00 05/07/20 21:10 Zinc Sulfate PO 220 mg HS PAMELA Administration - Exam General Appearance: NAD Heart: RRR, no gallops Respiratory: no wheezes, no ronchi Gastrointestinal: non-tender, normal bowel sounds Extremities: no cyanosis, no clubbing Neurological: no new deficit Hosp A/P - Plan PT/OT, DVT proph w/heparin, DVT proph w/SCDs Toxic metabolic encephalopathy, multifactorial Severe sepsis due to COVID Pneumonia/UTI PERRI on CKD 3/Dehydration -improving Metabolic acidosis/ lactic acidosis Relative adrenal insufficiency Elevated CK Hypokalemia HTN Anxiety DJD Gallbladder distention h/o Colon CA Swallow dysfunction - on modified diet Abnormal liver function test PLAN: 05/08 Continue IV ceftriaxone for UTI Await group home facility placement Continue physical therapy Change heparin to Lovenox for DVT prophylaxis Continue dexamethasone Recheck inflammatory markers in a.m. Check liver function test in a.m. 05/07 DC IVF Meropenem dced per ID Start Ceftriaxone for UTI - will change to PO at dc SNF eval Cont Dexamethasone - reduce dose DC to SNF when accepted - stable to dc 05/06 Cont current IVF Await urine cultures AM labs including markers Cont other meds Cont Steroids 05/05 Change IVF to D5 1/2NS with 40 meq KCL @ 50 Replace Potassium Cont IV Meropenem - dose adjusted for renal function Urine cultures pending Cont Metoprolol 12.5 mg BID AM labs including CK GB USG when COVID resolved SNF Eval Update: Pt has persistent low BP. Will add low dose steroids for possible relative adrenal insufficiency.
[2020-05-08] MEDS: Enoxaparin Sodium 30 MG/0.3 ML SYRINGE SC SCH (22:04)
[2020-05-08] MEDS: Zinc Sulfate 220 MG CAP PO SCH (22:05)
[2020-05-08] MEDS: Famotidine 20 MG TAB PO SCH (22:05)
[2020-05-08] MEDS: Ascorbic Acid 500 mg Chewable Tablet PO SCH (22:05)
[2020-05-09 04:11] VITALS: BMI 24.7
[2020-05-09 04:51] LABS: #Neutrophils 9.7 thou/uL (1.40-6.50); %Eosinophils 0.3 % (0.0-10.0); %Lymphocytes 15.9 % (21.0-51.0); %Neutrophils 75.8 % (42.0-75.0); Hemoglobin 10.6 g/dL (12.0-16.0); Mean Corpuscular HGB CONC 31.6 g/dL (32.0-36.0); Mean Corpuscular Hemoglobin 27.7 pg (27.0-31.0); Mean Corpuscular Volume 87.5 fL (78.0-98.0); Mean Platelet Volume 8.3 fL (7.4-10.4); Platelet Count 233 thou/uL (130-400); RBC Distribution Width 13.1 % (11.5-14.5); Red Blood Cell (RBC) Count 3.85 mill/uL (4.20-5.40); White Blood Cell (WBC) Count 12.8 thou/uL (4.8-10.8)
[2020-05-09 05:09] LABS: ALT (SGPT) 104 U/L (8-55); AST (SGOT) 102 U/L (5-34); Albumin 2.6 g/dL (3.4-4.8); Alkaline Phosphatase 104 U/L (40-110); Anion Gap 9 mmol/L (10-20); BUN (Urea Nitrogen) 34 mg/dL (9.8-20.1); Bilirubin, Total 0.3 mg/dL (0.2-1.2); CRP (Inflammatory) 0.97 mg/dL (= or < 0.5); Calc. Creatinine Clearance 45 mL/min (70-130); Calcium 8.6 mg/dL (7.8-10.44); Carbon Dioxide 31 mmol/L (23-31); Chloride 102 mmol/L (98-107); Estimated GFR-MDRD 49; Globulin 2.9 g/dL (2.4-3.5); Glucose 134 mg/dL (83-110); Magnesium 1.6 mg/dL (1.6-2.6); Phosphorus 2.7 mg/dL (2.3-4.7); Protein, Total 5.5 g/dL (6.0-8.3); Sodium 137 mmol/L (136-145)
[2020-05-09] MEDS: Saccharomyces boulardii 250 MG CAP PO SCH (09:35)
[2020-05-09] MEDS: Dexamethasone 4 MG TAB PO SCH (09:35)
[2020-05-09] MEDS: cefTRIAXone\\ROCEPHIN 1 GM in Sodium Chloride 0.9% 100 ML IVPB SCH (09:38)
[2020-05-09] MEDS: Enoxaparin Sodium 30 MG/0.3 ML SYRINGE SC SCH ×2 (09:40→22:12)
[2020-05-09] MEDS: Multivit, Therapeutic 1 TAB PO SCH (09:42)
[2020-05-09] MEDS: Folic Acid 1 MG TAB PO SCH (09:42)
[2020-05-09] MEDS: Cyanocobalamin (Vitamin B-12) 1,000 MCG TAB PO SCH (09:42)
[2020-05-09] MEDS: Metoprolol Tartrate 25 MG TAB PO SCH ×2 (10:12→22:10)
--- NOTE | 2020-05-09 18:34 | PDOC.HOSPP ---
- Subjective Encounter Date: 05/09/20 Encounter Time: 18:00 Subjective: Patient seen and examined for altered mentation. Mentation is improving with intermittent confusion. No chest pain shortness of breath palpitations reported. She is tolerating modified diet. - Objective Vital Signs & Weight: Vital Signs (12 hours) Temp Pulse Resp BP Pulse Ox 05/09/20 16:40 97.9 F 93 18 111/56 L 99 05/09/20 11:20 98.6 F 82 20 128/59 L 100 05/09/20 09:40 98.4 F 75 20 118/61 98 Weight Admit Weight 170 lb Weight 176 lb 11.2 oz I&O: 05/08/20 05/09/20 05/10/20 06:59 06:59 06:59 Intake Total 1160 960 677 Output Total 1450 1800 560 Balance -290 -840 117 Result Diagrams: 05/09/20 04:37 05/09/20 04:37 Additional Labs: Laboratory Tests 05/09/20 05/09/20 05/09/20 04:37 04:37 04:37 D-Dimer 6.00 H Phosphorus Ferritin 2665.15 H AST 102 H ALT 104 H C-Reactive Protein 0.97 H 05/09/20 04:37 D-Dimer Phosphorus 2.7 Ferritin AST ALT C-Reactive Protein EKG Reviewed by me: Yes (Sinus rhythm on telemetry monitoring) Hospitalist ROS - Review of Systems Respiratory: denies: cough, dry, shortness of breath, hemoptysis, SOB with excertion, pleuritic pain, sputum, wheezing, other Cardiovascular: denies: chest pain, palpitations, orthopnea, paroxysmal noc. dyspnea, edema, light headedness, other - Medication Medications: Active Medications Generic Name Dose Route Start Last Admin Trade Name Freq PRN Reason Stop Dose Admin Ascorbic Acid 1,000 mg 05/03/20 21:00 05/08/20 22:05 Vitamin C PO 1,000 mg HS PAMELA Administration Cyanocobalamin 1,000 mcg 05/06/20 09:00 05/09/20 09:42 Vitamin B-12 PO 1,000 mcg DAILY PAMELA Administration Dexamethasone 2 mg 05/08/20 08:00 05/09/20 09:35 Decadron PO 2 mg QAM-WM PAMELA Administration Enoxaparin Sodium 30 mg 05/08/20 21:00 05/09/20 09:40 Lovenox SC 30 mg 0900,2100 PAMELA Administration Famotidine 20 mg 05/06/20 21:00 05/08/20 22:05 Pepcid PO 20 mg QPM PAMELA Administration Folic Acid 1 mg 05/06/20 09:00 05/09/20 09:42 Folvite PO 1 mg DAILY PAMELA Administration Ceftriaxone Sodium 1 gm/ 100 mls @ 200 mls/hr 05/09/20 09:00 05/09/20 09:38 Sodium Chloride IVPB 100 mls 0900 PAMELA Administration Metoprolol Tartrate 12.5 mg 05/04/20 09:00 05/09/20 10:12 Lopressor PO Not Given BID PAMELA Multivitamins 1 tab 05/06/20 09:00 05/09/20 09:42 Theragran PO 1 tab DAILY PAMELA Administration Saccharomyces Boulardii 250 mg 05/08/20 09:00 05/09/20 09:35 Florastor PO 250 mg DAILY PAMEAL Administration Sodium Chloride 10 ml 05/03/20 21:00 05/09/20 09:35 Flush - Normal Saline IVF 10 ml Q12HR PAMELA Administration Zinc Sulfate 220 mg 05/03/20 21:00 05/08/20 22:05 Zinc Sulfate PO 220 mg HS PAMELA Administration - Exam General Appearance: NAD Heart: no gallops, no rubs Respiratory: no wheezes, rhonchi Gastrointestinal: non-tender, non-distended, normal bowel sounds Neurological: no new deficit Psychiatric: normal affect, A&O x 3 Hosp A/P - Plan DVT proph w/lovenox Toxic metabolic encephalopathy, multifactorial Severe sepsis due to COVID Pneumonia/UTI PERRI on CKD 3/Dehydration -improving Metabolic acidosis/ lactic acidosis Relative adrenal insufficiency Elevated CK Hypokalemia HTN Anxiety DJD Gallbladder distention h/o Colon CA Swallow dysfunction - on modified diet Abnormal liver function testimproving PLAN: 05/09 Mentation is gradually improving although she has episodes of confusion. Discharge to group home facility in a.m. if stable Discontinue IV ceftriaxone after tomorrow's dose Taper dexamethasone over next week Continue other medications Inflammatory markers improving I discussed with infectious disease Dr. Sandoval who is okay with patient being discharged to group home facility tomorrow. Add Eliquis 2.5 mg twice daily for 2 weeks at discharge. 05/08 Continue IV ceftriaxone for UTI Await group home facility placement Continue physical therapy Change heparin to Lovenox for DVT prophylaxis Continue dexamethasone Recheck inflammatory markers in a.m. Check liver function test in a.m. 05/07 DC IVF Meropenem dced per ID Start Ceftriaxone for UTI - will change to PO at dc SNF eval Cont Dexamethasone - reduce dose DC to SNF when accepted - stable to dc 05/06 Cont current IVF Await urine cultures AM labs including markers Cont other meds Cont Steroids 05/05 Change IVF to D5 1/2NS with 40 meq KCL @ 50 Replace Potassium Cont IV Meropenem - dose adjusted for renal function Urine cultures pending Cont Metoprolol 12.5 mg BID AM labs including CK GB USG when COVID resolved SNF Eval Update: Pt has persistent low BP. Will add low dose steroids for possible relative adrenal insufficiency.
[2020-05-09] MEDS: Zinc Sulfate 220 MG CAP PO SCH (22:09)
[2020-05-09] MEDS: Famotidine 20 MG TAB PO SCH (22:10)
[2020-05-09] MEDS: Ascorbic Acid 500 mg Chewable Tablet PO SCH (22:12)
[2020-05-10 05:39] VITALS: TEMP 98.2
[2020-05-10 06:06] LABS: #Basophils 0.1 thou/uL (0.0-0.2); #Eosinphils 0.1 thou/uL (0.0-0.7); #Lymphocytes 2.3 thou/uL (1.20-3.40); #Neutrophils 8.4 thou/uL (1.40-6.50); %Basophils 0.6 % (0.0-1.0); %Eosinophils 0.5 % (0.0-10.0); %Lymphocytes 19.6 % (21.0-51.0); %Monocytes 8.5 % (0.0-10.0); %Neutrophils 70.8 % (42.0-75.0); Hemoglobin 11.3 g/dL (12.0-16.0); Mean Corpuscular HGB CONC 32.1 g/dL (32.0-36.0); Mean Corpuscular Hemoglobin 28.2 pg (27.0-31.0); Mean Corpuscular Volume 87.8 fL (78.0-98.0); Mean Platelet Volume 8.1 fL (7.4-10.4); Platelet Count 242 thou/uL (130-400); RBC Distribution Width 13.3 % (11.5-14.5); Red Blood Cell (RBC) Count 4.01 mill/uL (4.20-5.40); White Blood Cell (WBC) Count 11.9 thou/uL (4.8-10.8)
[2020-05-10 06:28] LABS: ALT (SGPT) 118 U/L (8-55); AST (SGOT) 94 U/L (5-34); Albumin 2.7 g/dL (3.4-4.8); Alkaline Phosphatase 97 U/L (40-110); Anion Gap 11 mmol/L (10-20); BUN (Urea Nitrogen) 30 mg/dL (9.8-20.1); Bilirubin, Total 0.4 mg/dL (0.2-1.2); Calc. Creatinine Clearance 49 mL/min (70-130); Calcium 8.8 mg/dL (7.8-10.44); Carbon Dioxide 28 mmol/L (23-31); Chloride 103 mmol/L (98-107); Estimated GFR-MDRD 54; Globulin 3.1 g/dL (2.4-3.5); Glucose 112 mg/dL (83-110); Protein, Total 5.8 g/dL (6.0-8.3); Sodium 137 mmol/L (136-145)
[2020-05-10] MEDS: Folic Acid 1 MG TAB PO SCH (08:04)
[2020-05-10] MEDS: Metoprolol Tartrate 25 MG TAB PO SCH ×2 (08:04→10:27)
[2020-05-10] MEDS: Saccharomyces boulardii 250 MG CAP PO SCH (08:05)
[2020-05-10] MEDS: Enoxaparin Sodium 30 MG/0.3 ML SYRINGE SC SCH (08:05)
[2020-05-10] MEDS: Dexamethasone 4 MG TAB PO SCH (08:05)
[2020-05-10] MEDS: Multivit, Therapeutic 1 TAB PO SCH (08:05)
[2020-05-10] MEDS: Cyanocobalamin (Vitamin B-12) 1,000 MCG TAB PO SCH (08:05)
[2020-05-10] MEDS: cefTRIAXone\\ROCEPHIN 1 GM in Sodium Chloride 0.9% 100 ML IVPB SCH (08:06)
[2020-05-10] MEDS ORDERED: buPROPion 75 MG TAB PO SCH (09:00)
[2020-05-10 09:48] VITALS: BP 108/59
--- NOTE | 2020-05-10 13:48 | DIS ---
DATE OF ADMISSION: 05/03/2020 DATE OF DISCHARGE: 05/10/2020 DISCHARGE DISPOSITION: [facility]. FOLLOWUP: 1. Follow up with primary care physician, Dr. Silveira, in 1 week. 2. Follow up with Infectious Disease, Dr. Sandoval, in 2 weeks. ALLERGIES: NO KNOWN DRUG ALLERGIES. VITAL SIGNS: On the day of discharge showed temperature 98.2, pulse rate of 74, respirations 16, O2 saturation 99% on room air, blood pressure of 129/73. The patient was seen on the day of discharge. Denies any new complaints. No chest pain, shortness of breath, or palpitations reported. DISCHARGE MEDICATIONS: 1. Prednisone taper. 2. Zinc 220 mg at bedtime. 3. Metoprolol 12.5 mg b.i.d. 4. Multivitamin 1 tablet daily. 5. Folic acid 1 mg daily. 6. Ferrous sulfate 325 mg b.i.d. 7. Vitamin B12 1000 mcg daily. 8. Wellbutrin 75 mg daily. 9. Vitamin C 1000 mg daily. 10. Eliquis 2.5 mg twice daily for 2 weeks. 11. Tylenol as needed. 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 Sandoval. BRIEF HOSPITAL COURSE: The patient is a 80-year-old female with hypertension, presented to the hospital with generalized weakness and fatigue. She also has a history of recurrent falls. Please refer to the history and physical for further details. The patient was admitted to the hospital with a diagnosis of toxic metabolic encephalopathy, multifactorial. She was found to have creatinine of 4.41 with BUN of 115 and anion gap of 24. She was found to have a UTI with urinalysis showing greater than 50 wbc's with 4+ bacteria. Urine culture was positive for Proteus mirabilis. She underwent a CT scan of the abdomen, renal stone protocol, that was negative for obstructive uropathy. However, it also showed findings compatible with COVID pneumonia. Her COVID testing later on came back positive. For UTI, the patient was placed on IV antibiotics, which have been completed during this hospital stay. Her postvoid residuals were okay. She will benefit from regular postvoid residual monitoring. For COVID infection, the patient was evaluated by Infectious Disease, Dr. Sandoval. Her O2 saturation remained stable during this hospital stay. She was found to have elevated inflammatory markers that have been gradually improving. The patient was found to have acute kidney injury that improved with IV hydration. Her creatinine at discharge is 1.17 with a BUN of 115. The patient was also found to have gallbladder distention without any changes consistent with cholecystitis. She will benefit from a gallbladder ultrasound once COVID-19 infection resolves. FINAL DIAGNOSES: 1. Toxic metabolic encephalopathy, multifactorial. 2. Severe sepsis due to COVID-19 infection with pneumonia and Proteus urinary tract infection. 3. Acute kidney injury on chronic kidney disease, stage 3. 4. Dehydration. 5. Metabolic acidosis. 6. Lactic acidosis. 7. Relative adrenal insufficiency. The patient has significantly low blood pressure in 80s, that improved after starting low-dose steroids. 8. Elevated CK. 9. Hypokalemia. 10. Hypertension. 11. Anxiety. 12. Degenerative joint disease. 13. Gallbladder distention as discussed above. 14. History of colon cancer. 15. Swallow dysfunction. The patient is on pureed diet. 16. Abnormal liver function tests, improving. Time coordinating the discharge of this patient was 38 minutes. The plan of care was discussed with the patient and the family in detail. They stated understanding. Job ID: [id number]
== END 2020-05-10 14:00 | DRG 871 ==
LOC: ERS 09:32 → ERHOLD 12:04 → 2SW 15:25 → T4-B 05-09 21:26
PROVIDERS: ADMIT Internal Medicine; ATTEND Internal Medicine
DX: A41.89 Other specified sepsis (principal); G92 Toxic encephalopathy; U07.1 COVID-19; J12.89 Other viral pneumonia; N39.0 Urinary tract infection, site not specified; N17.9 Acute kidney failure, unspecified; E87.2 Acidosis; E27.40 Unspecified adrenocortical insufficiency; C78.5 Secondary malignant neoplasm of large intestine and rectum; R65.20 Severe sepsis without septic shock; B96.4 Proteus (mirabilis) (morganii) as the cause of diseases classified elsewhere; N18.3 Chronic kidney disease, stage 3 (moderate); E87.6 Hypokalemia; I12.9 Hypertensive chronic kidney disease with stage 1 through stage 4 chronic kidney disease, or unspecified chronic kidney disease; G47.00 Insomnia, unspecified; R29.6 Repeated falls; F41.9 Anxiety disorder, unspecified; E78.5 Hyperlipidemia, unspecified; E86.0 Dehydration; R94.5 Abnormal results of liver function studies; M19.90 Unspecified osteoarthritis, unspecified site; K82.8 Other specified diseases of gallbladder; Z90.49 Acquired absence of other specified parts of digestive tract; Z90.710 Acquired absence of both cervix and uterus; Z85.43 Personal history of malignant neoplasm of ovary
CPT/HCPCS: 36415; 51701; 70450; 71045; 74176; 78451; 80048; 80053; 80076; 81003; 81015; 82533; 82550; 82553; 82728; 83605; 83615; 83690; 83735; 83880; 84100; 84443; 84484; 85025; 85379; 86140; 87040; 87077; 87086; 87186; 93005; 94760; 96365; 96366; 96367; A9540; J0696; J1644; J1650; J2185; J3370; J3480; J3490; J7030; J7042; J7070; J8540; U0002

== ENCOUNTER 2021-03-28 12:20 | Outpatient (CLI) | payer MEDICARE, MEDICAID | END 2021-03-28 12:21 | disposition home or self-care (01) | LOC: BICMAMMO 12:20 | PROVIDERS: ATTEND Family Medicine | DX: Z12.31 Encounter for screening mammogram for malignant neoplasm of breast (principal); Z85.038 Personal history of other malignant neoplasm of large intestine | CPT/HCPCS: 77063; 77067 ==

== ENCOUNTER 2022-05-01 12:40 | Outpatient (CLI) | payer MEDICARE, MEDICAID | END 2022-05-01 12:41 | disposition home or self-care (01) | LOC: BICMAMMO 12:40 | PROVIDERS: ATTEND Family Medicine | DX: Z12.31 Encounter for screening mammogram for malignant neoplasm of breast (principal); Z85.038 Personal history of other malignant neoplasm of large intestine; Z85.42 Personal history of malignant neoplasm of other parts of uterus | CPT/HCPCS: 77063; 77067 ==

== ENCOUNTER 2024-11-10 08:17 | Inpatient (IN) | payer OTHER, MEDICAID ==
[2024-11-10] MEDS ORDERED: Ipratropium/Albuterol 3 ML NEB ONE (08:50)
[2024-11-10 09:03] LABS: Analyzer IN Cardio ER; Calcium, Ionized (arterial) 1.16 mmol/L (1.12-1.30); Carboxyhemoglobin (COHb) 0.5 gm% (0.0-3.0); Hematocrit-ABG 44 % (36.0-47.0); Hemoglobin (Hb) 14.8 g/dL (12.0-16.0); Potassium - ABG Lab 3.29 mmol/L (3.70-5.30); pH, Arterial 7.409 (7.35-7.45)
[2024-11-10 09:04] LABS: Actual Bicarbonate (HCO3a) 13.2 mEq/L (22-28); CO2 Tension 21.4 mmHg (35.0-45.0); Puncture Site Left Radial artery
[2024-11-10] MEDS ORDERED: cefTRIAXone (ROCEPHIN) 2 GM VIAL ONE (09:06)
[2024-11-10] MEDS ORDERED: Sodium Chloride 0.9% 100 ML ONE (09:06)
[2024-11-10] MEDS ORDERED: Azithromycin 500 MG VIAL ONE (09:06)
[2024-11-10 09:15] LABS: ALT (SGPT) 60 U/L (Less than 34); AST (SGOT) 115 U/L (11-34); Albumin 2.7 g/dL (3.1-4.5); Alkaline Phosphatase 71 U/L (40-110); Anion Gap 22 mmol/L (10-20); BUN (Urea Nitrogen) 59 mg/dL (9.8-20.1); Bilirubin, Total 1.1 mg/dL (0.3-1.2); Calc. Creatinine Clearance 0 mL/min (70-130); Calcium 8.9 mg/dL (7.8-10.44); Carbon Dioxide 13 mmol/L (23-31); Chloride 108 mmol/L (98-107); Estimated GFR 9; Globulin 4.3 g/dL (2.4-3.5); Glucose 288 mg/dL (83-110); Lipase 11 U/L (8-78); Magnesium 1.6 mg/dL (1.6-2.6); Potassium 3.7 mmol/L (3.5-5.1); Sodium 139 mmol/L (136-145)
[2024-11-10] MEDS ORDERED: EPINEPHrine 1 MG/10 ML Abboject SYRINGE ONE (09:21)
[2024-11-10] MEDS ORDERED: Etomidate 40 MG (20 mL) VIAL ONE (09:23)
[2024-11-10] MEDS ORDERED: Rocuronium Bromide 10 MG/ML (10ML VIAL) ONE (09:24)
[2024-11-10] MEDS ORDERED: Fentanyl CADD 100 ML IV SCH (10:00)
[2024-11-10 10:15] LABS: Troponin I 0.215 ng/mL (< 0.028)
[2024-11-10 10:42] LABS: Hematocrit 36.6 % (36.0-47.0); Hemoglobin 12.6 g/dL (12.0-16.0); Mean Corpuscular HGB CONC 34.4 g/dL (32.0-36.0); Mean Corpuscular Hemoglobin 27.8 pg (27.0-31.0); Mean Corpuscular Volume 80.6 fL (78.0-98.0); Mean Platelet Volume 12.7 fL (7.4-10.4); Platelet Count 111 10x3/uL (130-400); RBC Distribution Width 14.6 % (11.5-14.5); Red Blood Cell (RBC) Count 4.54 mill/uL (4.20-5.40)
[2024-11-10] MEDS ORDERED: NOREPINEPHRINE 8 MG/250 ML-D5W 250 ML ONE (10:52)
[2024-11-10] MEDS ORDERED: Aspirin Chewable 81 MG TAB ONE (10:52)
[2024-11-10 10:53] LABS: pH, Urine 7.5 (5.0-9.0)
[2024-11-10 10:57] LABS: Clarity Turbid (Clear)
[2024-11-10 10:58] LABS: Bilirubin Unable to Interpret (Negative); Blood, Urine Unable to Interpret (Negative); Glucose, Urine (Dipstick) Unable to Interpret mg/dL (Negative); Ketone, Urine Unable to Interpret mg/dL (Negative); Leukocyte Unable to Interpret (Negative); Nitrite Unable to Interpret (Negative); Protein, Urine (Dipstick) Unable to Interpret mg/dL (Neg-Trace); Urobilinogen UNABLE TO INTERPRET mg/dL (Less than 2)
[2024-11-10 11:04] LABS: Band 37 % (5-11); Burr Cells SLIGHT = 2-5 cells HPF (0-1); Large Platelets 10.9 % (0-5); Lymphocytes 8 % (21-51); Macrocytosis SLIGHT = 6-15 cells HPF (0-5); Metamyelocyte 8 % (0-0); Monocytes 11 % (0-10); Myelocyte 2 % (0-0); Neutrophil 33 % (42-75); Platelet Adequacy Comment Platelets Decreased; Polychromasia SLIGHT = 2-3 cells HPF (0-2); Reactive Lymphocytes 1 % (0-10); Smudge Cells 5.5 %; Toxic Granulation MODERATE; Vacuoles SLIGHT
[2024-11-10 11:11] LABS: Bacteria/HPF 3+ HPF (None Seen); CAUTI Indications for Culture Alt mental st,lethar; Squamous Epithelial 0-3 HPF (0-3); WBC/HPF 21-50 HPF (0-3)
[2024-11-10 11:13] LABS: Urine Culture Reflex Yes Yes
[2024-11-10 11:42] LABS: Analyzer IN Cardio ER; Base Excess (BEa) -12.6 mEq/L (-2.0 to +3.0); CO2 Tension 28.6 mmHg (35.0-45.0); Calcium, Ionized (arterial) 1.12 mmol/L (1.12-1.30); Carboxyhemoglobin (COHb) 0.3 gm% (0.0-3.0); Hematocrit-ABG 36 % (36.0-47.0); Hemoglobin (Hb) 12.1 g/dL (12.0-16.0); O2 Tension (PaO2), arterial 83.9 mmHg (> 60.0)
[2024-11-10 11:49] LABS: Lactic Acid 4.74 mmol/L (0.50-2.20)
[2024-11-10] MEDS ORDERED: Bisacodyl 5 MG TAB PO PRN (11:52)
[2024-11-10] MEDS ORDERED: Ipratropium/Albuterol 3 ML NEB NEB PRN (11:52)
[2024-11-10] MEDS ORDERED: Ondansetron PF 4 MG/2 ML Vial IVP PRN (11:52)
[2024-11-10] MEDS ORDERED: Fentanyl BOLUS 250 ML IVPB PRN (12:45)
[2024-11-10] MEDS ORDERED: DISCONTINUE PREVIOUS NARCOTIC PAIN MEDICATIONS AND BENZODIAZEPINES FS SCH (12:45)
[2024-11-10] MEDS ORDERED: Propofol BOLUS 1,000 MG/100 ML VIAL IV PRN (12:45)
[2024-11-10] MEDS ORDERED: Ventilator Sedation Protocol 1 EACH FS SCH (12:45)
[2024-11-10] MEDS: Acetaminophen 325 MG TAB PO PRN (12:58)
[2024-11-10] MEDS: Sodium Chloride 0.9% 1,000 ML IV SCH ×2 (12:58→14:15)
[2024-11-10] MEDS: Acetaminophen 650 MG Suppository PR PRN (13:25)
[2024-11-10 14:21] LABS: Troponin I 0.228 ng/mL (< 0.028)
[2024-11-10 14:36] LABS: Actual Bicarbonate (HCO3a) 12.8 mEq/L (22-28); Potassium - ABG Lab 2.62 mmol/L (3.70-5.30)
[2024-11-10] MEDS: Albumin 25% 25 GM (100 mL) BOT IVPB SCH (14:36)
[2024-11-10] MEDS: Heparin 5,000 UNITS/ML VIAL SC SCH (14:36)
[2024-11-10 14:37] LABS: Puncture Site Right Radial artery
[2024-11-10] MEDS: Lorazepam 2 MG/ML VIAL SLOW IVP PRN (16:15)
[2024-11-10] MEDS: Vasopressin In 0.9 % NaCl 40 UNIT in Premix 1 BAG IV SCH (16:23)
[2024-11-10 17:11] LABS: Lactic Acid 6.43 mmol/L (0.50-2.20)
[2024-11-10 17:11] LABS: Troponin I 0.192 ng/mL (< 0.028)
[2024-11-10] MEDS: Lactated Ringer's 1,000 ML IV SCH (17:22)
[2024-11-10 18:28] LABS: Legionella Urinary Ag Negative (Negative); Strep pneumo Urine Ag NEGATIVE (NEGATIVE)
[2024-11-10] MEDS: NOREPINEPHRINE 8 MG/250 ML-D5W 250 ML IVPB PRN (22:05)
[2024-11-11 04:27] LABS: Hematocrit 32.6 % (36.0-47.0); Hemoglobin 11.2 g/dL (12.0-16.0); Mean Corpuscular HGB CONC 34.4 g/dL (32.0-36.0); Mean Corpuscular Hemoglobin 27.6 pg (27.0-31.0); Mean Corpuscular Volume 80.3 fL (78.0-98.0); Mean Platelet Volume 12.8 fL (7.4-10.4); Platelet Count 107 10x3/uL (130-400); RBC Distribution Width 14.9 % (11.5-14.5); Red Blood Cell (RBC) Count 4.06 mill/uL (4.20-5.40)
[2024-11-11 04:40] LABS: Anion Gap 21 mmol/L (10-20); BUN (Urea Nitrogen) 61 mg/dL (9.8-20.1); Calc. Creatinine Clearance 15 mL/min (70-130); Carbon Dioxide 12 mmol/L (23-31); Chloride 111 mmol/L (98-107); Estimated GFR 10; Glucose 242 mg/dL (83-110); Potassium 3.4 mmol/L (3.5-5.1); Sodium 141 mmol/L (136-145)
[2024-11-11] MEDS: Fentanyl CADD 100 ML IV SCH (04:56)
[2024-11-11 05:31] LABS: Anisocytosis SLIGHT = 6-15 cells HPF (0-5); Band 55 % (5-11); Hypochromia SLIGHT = 6-15 cells HPF (0-5); Large Platelets 9.2 % (0-5); Lymphocytes 3 % (21-51); Metamyelocyte 14 % (0-0); Monocytes 19 % (0-10); Myelocyte 1 % (0-0); Neutrophil 7 % (42-75); Platelet Adequacy Comment Platelets Decreased; Polychromasia SLIGHT = 2-3 cells HPF (0-2); Promyelocytes 2 % (0-0); Reactive Lymphocytes 1 % (0-10); Reflex for Review?? YES
[2024-11-11] MEDS: Azithromycin 500 MG in Sodium Chloride 0.9% 250 ML 250 ML IVPB SCH (08:41)
[2024-11-11] MEDS: cefTRIAXone\\ROCEPHIN 1 GM in Sodium Chloride 0.9% 100 ML IVPB SCH (08:42)
[2024-11-11 09:59] LABS: Lactic Acid 6.55 mmol/L (0.50-2.20)
[2024-11-11 11:36] LABS: Base Excess -13.9 mEq/L (-2.0 to +3.0); Calcium, Ionized (venous) 1.01 mmol/L (1.16-1.32); Chloride (VBG) 110 mmol/L (98-106); Hematocrit-VBG 34 % (36.0-47.0); Hemoglobin (Hb) 11.5 g/dL (11.7-16.1); Potassium (VBG) 3.46 mmol/L (3.70-5.30); Sodium 139 mmol/L (133-146); pH (venous) 7.293 (7.32-7.43)
[2024-11-11 11:45] LABS: Actual Bicarbonate (HCO3v) 10.8 mEq/L (22-28)
[2024-11-11] MEDS: Lactated Ringer's 500 ML IV SCH (11:53)
[2024-11-11 11:59] LABS: ALT (SGPT) 74 U/L (Less than 34); AST (SGOT) 181 U/L (11-34); Alkaline Phosphatase 63 U/L (40-110); Anion Gap 22 mmol/L (10-20); BUN (Urea Nitrogen) 60 mg/dL (9.8-20.1); Bilirubin, Total 2.5 mg/dL (0.3-1.2); Calc. Creatinine Clearance 16 mL/min (70-130); Carbon Dioxide 10 mmol/L (23-31); Chloride 114 mmol/L (98-107); Estimated GFR 11; Globulin 3.3 g/dL (2.4-3.5); Glucose 182 mg/dL (83-110); Potassium 3.5 mmol/L (3.5-5.1); Protein, Total 5.3 g/dL (5.8-8.1); Sodium 142 mmol/L (136-145)
[2024-11-11 12:06] LABS: Lactic Acid 6.34 mmol/L (0.50-2.20)
[2024-11-11] MEDS: Propofol 1,000 MG/100 ML VIAL IV PRN (13:12)
[2024-11-12 05:02] LABS: Actual Bicarbonate (HCO3v) 16.7 mEq/L (22-28); Base Excess -9.6 mEq/L (-2.0 to +3.0); Calcium, Ionized (venous) 1.12 mmol/L (1.16-1.32); Chloride (VBG) 112 mmol/L (98-106); Hematocrit-VBG 33 % (36.0-47.0); Hemoglobin (Hb) 11.3 g/dL (11.7-16.1); Potassium (VBG) 3.22 mmol/L (3.70-5.30); Sodium 142 mmol/L (133-146); pH (venous) 7.263 (7.32-7.43)
[2024-11-12 05:09] LABS: Hematocrit 28.6 % (36.0-47.0); Mean Corpuscular Hemoglobin 28.1 pg (27.0-31.0); Mean Corpuscular Volume 80.3 fL (78.0-98.0); Mean Platelet Volume 12.5 fL (7.4-10.4); Platelet Count 137 10x3/uL (130-400); RBC Distribution Width 15.4 % (11.5-14.5); Red Blood Cell (RBC) Count 3.56 mill/uL (4.20-5.40)
[2024-11-12 05:35] LABS: Anisocytosis SLIGHT = 6-15 cells HPF (0-5); Band 39 % (5-11); Hypochromia SLIGHT = 6-15 cells HPF (0-5); Lymphocytes 1 % (21-51); Macrocytosis SLIGHT = 6-15 cells HPF (0-5); Monocytes 5 % (0-10); Neutrophil 55 % (42-75); Platelet Adequacy Comment Platelets Normal; Poikilocytosis SLIGHT = 6-15 cells HPF (0-5); Polychromasia SLIGHT = 2-3 cells HPF (0-2)
[2024-11-12] MEDS: Sodium Bicarb 50 MEQ/50 ML Abboject 8.4% SYRINGE IVP SCH (06:56)
[2024-11-12 07:03] LABS: Anion Gap 17 mmol/L (10-20); BUN (Urea Nitrogen) 56 mg/dL (9.8-20.1); Calc. Creatinine Clearance 19 mL/min (70-130); Calcium 8.3 mg/dL (7.8-10.44); Carbon Dioxide 15 mmol/L (23-31); Chloride 115 mmol/L (98-107); Estimated GFR 14; Glucose 142 mg/dL (83-110); Potassium 3.2 mmol/L (3.5-5.1); Sodium 144 mmol/L (136-145)
[2024-11-12 07:49] VITALS: BMI 27.8
[2024-11-12 07:56] LABS: Lactic Acid 2.75 mmol/L (0.50-2.20)
[2024-11-12] MEDS: Sodium Bicarbonate 150 MEQ in Dextrose 5% in Water 1,000 ML IV SCH (08:25)
[2024-11-12] MEDS: Pantoprazole 40 MG VIAL IVP SCH (10:45)
[2024-11-12] MEDS: Polyethylene Glycol 3350 17 GM Packet PO SCH (10:48)
[2024-11-12] MEDS: Senokot S 8.6-50 MG TAB PO SCH (10:49)
[2024-11-12 11:55] LABS: Actual Bicarbonate (HCO3v) 27.3 mEq/L (22-28); Base Excess 1.8 mEq/L (-2.0 to +3.0); Chloride (VBG) 98 mmol/L (98-106); Hematocrit-VBG 27 % (36.0-47.0); Hemoglobin (Hb) 9.1 g/dL (11.7-16.1); Potassium (VBG) 3.56 mmol/L (3.70-5.30); Sodium 133 mmol/L (133-146); pH (venous) 7.378 (7.32-7.43)
[2024-11-12] MEDS: cefTRIAXone\\ROCEPHIN 1 GM in Sodium Chloride 0.9% 100 ML IVPB SCH (12:01)
[2024-11-12] MEDS: Dexmedetomidine In 0.9 % NaCl 100 ML IVPB SCH (12:01)
[2024-11-12] MEDS ORDERED: CEFAZOLIN 1 GM VIAL SLOW IVP SCH (14:00)
[2024-11-13 08:59] LABS: Hematocrit 25.9 % (36.0-47.0); Hemoglobin 9.2 g/dL (12.0-16.0); Mean Corpuscular HGB CONC 35.5 g/dL (32.0-36.0); Mean Platelet Volume 12.3 fL (7.4-10.4); Platelet Count 124 10x3/uL (130-400); RBC Distribution Width 15.3 % (11.5-14.5); Red Blood Cell (RBC) Count 3.28 mill/uL (4.20-5.40)
[2024-11-13 09:26] LABS: Anion Gap 17 mmol/L (10-20); BUN (Urea Nitrogen) 54 mg/dL (9.8-20.1); Calc. Creatinine Clearance 29 mL/min (70-130); Calcium 8.6 mg/dL (7.8-10.44); Carbon Dioxide 20 mmol/L (23-31); Chloride 111 mmol/L (98-107); Estimated GFR 20; Glucose 268 mg/dL (83-110); Potassium 2.6 mmol/L (3.5-5.1); Sodium 145 mmol/L (136-145)
[2024-11-13 10:15] LABS: Band 11 % (5-11); Hypochromia SLIGHT = 6-15 cells HPF (0-5); Lymphocytes 1 % (21-51); Monocytes 1 % (0-10); Neutrophil 87 % (42-75); Platelet Adequacy Comment Platelets Normal; Polychromasia SLIGHT = 2-3 cells HPF (0-2)
[2024-11-13] MEDS: cefTRIAXone\\ROCEPHIN 2 GM in Sodium Chloride 0.9% 100 ML IVPB SCH (11:41)
[2024-11-13] MEDS: Potassium Bicarbonate/Cit Ac 20 MEQ TAB PO SCH (12:10)
[2024-11-14] MEDS: Lactated Ringer's 500 ML IV SCH (10:20)
[2024-11-14 12:37] LABS: Hematocrit 25.5 % (36.0-47.0); Hemoglobin 9.1 g/dL (12.0-16.0); Mean Corpuscular HGB CONC 35.7 g/dL (32.0-36.0); Mean Corpuscular Hemoglobin 27.7 pg (27.0-31.0); Mean Corpuscular Volume 77.7 fL (78.0-98.0); Platelet Count 129 10x3/uL (130-400); RBC Distribution Width 14.4 % (11.5-14.5); Red Blood Cell (RBC) Count 3.28 mill/uL (4.20-5.40)
[2024-11-14 12:49] LABS: Chloride 112 mmol/L (98-107); Potassium 2.7 mmol/L (3.5-5.1)
[2024-11-14 12:50] LABS: Albumin 1.4 g/dL (3.1-4.5); Calcium 8.5 mg/dL (7.8-10.44); Sodium 146 mmol/L (136-145)
[2024-11-14 12:51] LABS: Globulin 3.7 g/dL (2.4-3.5); Glucose 296 mg/dL (83-110); Protein, Total 5.1 g/dL (5.8-8.1)
[2024-11-14 12:52] LABS: Anion Gap 16 mmol/L (10-20); Carbon Dioxide 21 mmol/L (23-31)
[2024-11-14 12:54] LABS: Alkaline Phosphatase 100 U/L (40-110); Bilirubin, Total 9.5 mg/dL (0.3-1.2)
[2024-11-14 12:55] LABS: BUN (Urea Nitrogen) 54 mg/dL (9.8-20.1); Calc. Creatinine Clearance 27 mL/min (70-130); Estimated GFR 22
[2024-11-14 12:56] LABS: Magnesium 1.7 mg/dL (1.6-2.6)
[2024-11-14 12:57] LABS: ALT (SGPT) 85 U/L (Less than 34); AST (SGOT) 211 U/L (11-34)
[2024-11-14 12:59] LABS: Phosphorus 0.7 mg/dL (2.5-4.5)
[2024-11-14] MEDS ORDERED: Electrolyte Replacement Protocol FS PRN (13:15)
[2024-11-14] MEDS ORDERED: Potassium Phosphate 30 MMOL in Sodium Chloride 0.9% 250 ML 250 ML IVPB SCH (13:30)
[2024-11-14 13:44] LABS: Burr Cells SLIGHT = 2-5 cells HPF (0-1); Large Platelets 13.9 % (0-5); Lymphocytes 5 % (21-51); Macrocytosis SLIGHT = 6-15 cells HPF (0-5); Microcytosis SLIGHT = 6-15 cells HPF (0-5); Monocytes 2 % (0-10); Myelocyte 1 % (0-0); Neutrophil 90 % (42-75); Nucleated RBC (Manual Ct) 1 % (0); Platelet Adequacy Comment Platelets Decreased; Polychromasia SLIGHT = 2-3 cells HPF (0-2); Promyelocytes 2 % (0-0); Schistocytes SLIGHT = 2-5 cells HPF (0-1); Smudge Cells 7.9 %; Target Cells SLIGHT = 2-5 cells HPF (0-1); Toxic Granulation SLIGHT; Vacuoles SLIGHT
[2024-11-14] MEDS: NOREPINEPHRINE 8 MG/250 ML-D5W 250 ML IVPB SCH (13:49)
[2024-11-14] MEDS: Potassium Phosphate 30 MMOL in Sodium Chloride 0.9% 250 ML 250 ML IVPB SCH (14:07)
[2024-11-14] MEDS ORDERED: Potassium Chloride 20 MEQ in Premix 1 BAG IVPB SCH (15:00)
[2024-11-14] MEDS: Magnesium 2 GM/50 ML(in water) 2 GM in Premix 1 BAG IVPB SCH (15:22)
[2024-11-14] MEDS: Potassium Chloride 20 MEQ in Premix 1 BAG IVPB SCH (17:09)
[2024-11-14 22:18] LABS: Potassium 3.9 mmol/L (3.5-5.1)
[2024-11-14 22:30] LABS: Phosphorus 2.2 mg/dL (2.5-4.5)
[2024-11-15 05:28] LABS: Hematocrit 25.7 % (36.0-47.0); Hemoglobin 9.1 g/dL (12.0-16.0); Mean Corpuscular HGB CONC 35.4 g/dL (32.0-36.0); Mean Corpuscular Hemoglobin 27.7 pg (27.0-31.0); Mean Corpuscular Volume 78.1 fL (78.0-98.0); Mean Platelet Volume 11.8 fL (7.4-10.4); Platelet Count 163 10x3/uL (130-400); RBC Distribution Width 14.6 % (11.5-14.5); Red Blood Cell (RBC) Count 3.29 mill/uL (4.20-5.40)
[2024-11-15 05:44] LABS: Phosphorus 1.5 mg/dL (2.5-4.5)
[2024-11-15 05:45] LABS: ALT (SGPT) 80 U/L (Less than 34); AST (SGOT) 143 U/L (11-34); Albumin 1.4 g/dL (3.1-4.5); Alkaline Phosphatase 118 U/L (40-110); Anion Gap 17 mmol/L (10-20); BUN (Urea Nitrogen) 57 mg/dL (9.8-20.1); Bilirubin, Total 11.4 mg/dL (0.3-1.2); Calc. Creatinine Clearance 28 mL/min (70-130); Calcium 8.5 mg/dL (7.8-10.44); Carbon Dioxide 20 mmol/L (23-31); Chloride 113 mmol/L (98-107); Estimated GFR 22; Globulin 4.1 g/dL (2.4-3.5); Glucose 440 mg/dL (83-110); Magnesium 2.3 mg/dL (1.6-2.6); Potassium 3.3 mmol/L (3.5-5.1); Protein, Total 5.5 g/dL (5.8-8.1); Sodium 147 mmol/L (136-145)
[2024-11-15 05:58] LABS: Anisocytosis SLIGHT = 6-15 cells HPF (0-5); Band 16 % (5-11); Hypochromia SLIGHT = 6-15 cells HPF (0-5); Lymphocytes 4 % (21-51); Microcytosis SLIGHT = 6-15 cells HPF (0-5); Monocytes 7 % (0-10); Neutrophil 71 % (42-75); Nucleated RBC (Manual Ct) 2 % (0); Platelet Adequacy Comment Platelets Normal; Polychromasia SLIGHT = 2-3 cells HPF (0-2); Promyelocytes 2 % (0-0)
[2024-11-15] MEDS ORDERED: Dextrose 50% Abboject 50 ML SYRINGE SLOW IVP PRN (06:15)
[2024-11-15] MEDS ORDERED: Dextrose 5% in Water 1,000 ML IV PRN (06:15)
[2024-11-15] MEDS ORDERED: Glucagon 1 MG/ML KIT IM PRN (06:15)
[2024-11-15] MEDS: Insulin Lispro 100 UNIT/ML 10 ML VIAL SC PRN ×2 (06:56→15:55)
[2024-11-15] MEDS: FLU (Fluad Triv) TS24-25 (65UP)/MF59C/PF 45 MCG/0.5 ML Syringe IM ONE (07:13)
[2024-11-15] MEDS: Electrolyte Replacement Protocol 1 EACH FS ONE (07:13)
[2024-11-15] MEDS: Potassium Chloride 20 MEQ TAB PO SCH (07:16)
[2024-11-15] MEDS: Potassium Phosphate 22 MMOL in Sodium Chloride 0.9% 250 ML 250 ML IVPB SCH (07:37)
[2024-11-15] MEDS ORDERED: Insulin Lispro 100 UNIT/ML 10 ML VIAL SC PRN (08:15)
[2024-11-15] MEDS: Insulin NPH Human Isophane 100 UNITS/ML (10 ML VIAL) SC SCH (09:47)
[2024-11-16 04:30] LABS: Hematocrit 24.8 % (36.0-47.0); Hemoglobin 8.8 g/dL (12.0-16.0); Mean Corpuscular HGB CONC 35.5 g/dL (32.0-36.0); Mean Corpuscular Hemoglobin 27.8 pg (27.0-31.0); Mean Corpuscular Volume 78.2 fL (78.0-98.0); Mean Platelet Volume 12.8 fL (7.4-10.4); Platelet Count 165 10x3/uL (130-400); RBC Distribution Width 14.2 % (11.5-14.5); Red Blood Cell (RBC) Count 3.17 mill/uL (4.20-5.40)
[2024-11-16 04:40] LABS: ALT (SGPT) 59 U/L (Less than 34); AST (SGOT) 90 U/L (11-34); Albumin 1.3 g/dL (3.1-4.5); Alkaline Phosphatase 110 U/L (40-110); Anion Gap 19 mmol/L (10-20); BUN (Urea Nitrogen) 77 mg/dL (9.8-20.1); Calc. Creatinine Clearance 22 mL/min (70-130); Calcium 8.4 mg/dL (7.8-10.44); Carbon Dioxide 19 mmol/L (23-31); Chloride 116 mmol/L (98-107); Estimated GFR 17; Globulin 4.4 g/dL (2.4-3.5); Glucose 296 mg/dL (83-110); Magnesium 2.2 mg/dL (1.6-2.6); Potassium 3.8 mmol/L (3.5-5.1); Protein, Total 5.7 g/dL (5.8-8.1); Sodium 150 mmol/L (136-145)
[2024-11-16 04:47] LABS: Phosphorus 2.9 mg/dL (2.5-4.5)
[2024-11-16 05:09] LABS: Anisocytosis SLIGHT = 6-15 cells HPF (0-5); Band 17 % (5-11); Hypochromia SLIGHT = 6-15 cells HPF (0-5); Large Platelets 13.1 % (0-5); Lymphocytes 6 % (21-51); Microcytosis SLIGHT = 6-15 cells HPF (0-5); Monocytes 2 % (0-10); Neutrophil 75 % (42-75); Platelet Adequacy Comment Platelets Normal; Polychromasia SLIGHT = 2-3 cells HPF (0-2); Target Cells SLIGHT = 2-5 cells HPF (0-1)
[2024-11-16] MEDS: Sodium Chloride 0.45% 1,000 ML IV SCH (09:00)
[2024-11-16] MEDS: Insulin NPH Human Isophane 100 UNITS/ML (10 ML VIAL) SC SCH (09:01)
[2024-11-17 04:36] LABS: Hematocrit 25.2 % (36.0-47.0); Hemoglobin 8.9 g/dL (12.0-16.0); Mean Corpuscular HGB CONC 35.3 g/dL (32.0-36.0); Mean Corpuscular Hemoglobin 27.6 pg (27.0-31.0); Platelet Count 171 10x3/uL (130-400); RBC Distribution Width 14.5 % (11.5-14.5); Red Blood Cell (RBC) Count 3.23 mill/uL (4.20-5.40)
[2024-11-17 04:50] LABS: ALT (SGPT) 46 U/L (Less than 34); AST (SGOT) 82 U/L (11-34); Albumin 1.1 g/dL (3.1-4.5); Alkaline Phosphatase 103 U/L (40-110); Anion Gap 18 mmol/L (10-20); BUN (Urea Nitrogen) 79 mg/dL (9.8-20.1); Bilirubin, Total 8.7 mg/dL (0.3-1.2); Calc. Creatinine Clearance 0 mL/min (70-130); Calcium 7.8 mg/dL (7.8-10.44); Carbon Dioxide 18 mmol/L (23-31); Chloride 116 mmol/L (98-107); Estimated GFR 15; Globulin 4.7 g/dL (2.4-3.5); Glucose 239 mg/dL (83-110); Phosphorus 4.1 mg/dL (2.5-4.5); Potassium 4.5 mmol/L (3.5-5.1); Protein, Total 5.8 g/dL (5.8-8.1); Sodium 147 mmol/L (136-145)
[2024-11-17 05:26] LABS: Anisocytosis MODERATE=16-30 cells HPF (0-5); Dohle Bodies SLIGHT; Hypochromia SLIGHT = 6-15 cells HPF (0-5); Large Platelets 5.9 % (0-5); Lymphocytes 3 % (21-51); Monocytes 2 % (0-10); Neutrophil 94 % (42-75); Nucleated RBC (Manual Ct) 1 % (0); Platelet Adequacy Comment Platelets Normal; Polychromasia SLIGHT = 2-3 cells HPF (0-2); Promyelocytes 1 % (0-0); Target Cells MODERATE= 6-15 cells HPF (0-1); Toxic Granulation SLIGHT; Vacuoles SLIGHT
[2024-11-17] MEDS: Insulin NPH Human Isophane 100 UNITS/ML (10 ML VIAL) SC SCH (10:05)
[2024-11-17] MEDS ORDERED: Vancomycin Dose by Levels Sliding Scale (Wt 71-99) FS SCH (10:15)
[2024-11-17] MEDS: Vancomycin (BATCH) 1.75 GM in Premix 1 BAG IVPB SCH (10:37)
[2024-11-17] MEDS: NOREPINEPHRINE 8 MG/250 ML-D5W 250 ML IVPB SCH (12:03)
[2024-11-17] MEDS: NOREPINEPHRINE 8 MG/250 ML-D5W 250 ML ONE (12:04)
[2024-11-17] MEDS: Morphine 2 MG/ML VIAL SLOW IVP PRN (22:51)
[2024-11-18] MEDS: Morphine 4 MG/ML VIAL SLOW IVP SCH (02:43)
[2024-11-18 05:00] LABS: Hematocrit 22.6 % (36.0-47.0); Hemoglobin 7.9 g/dL (12.0-16.0); Mean Corpuscular Hemoglobin 27.1 pg (27.0-31.0); Mean Corpuscular Volume 77.7 fL (78.0-98.0); Mean Platelet Volume 13.9 fL (7.4-10.4); Platelet Count 236 10x3/uL (130-400); RBC Distribution Width 14.4 % (11.5-14.5); Red Blood Cell (RBC) Count 2.91 mill/uL (4.20-5.40)
[2024-11-18 05:28] LABS: ALT (SGPT) 32 U/L (Less than 34); AST (SGOT) 47 U/L (11-34); Alkaline Phosphatase 93 U/L (40-110); Anion Gap 17 mmol/L (10-20); BUN (Urea Nitrogen) 92 mg/dL (9.8-20.1); Bilirubin, Total 8.9 mg/dL (0.3-1.2); Calc. Creatinine Clearance 20 mL/min (70-130); Calcium 7.8 mg/dL (7.8-10.44); Carbon Dioxide 18 mmol/L (23-31); Chloride 110 mmol/L (98-107); Estimated GFR 16; Globulin 4.1 g/dL (2.4-3.5); Glucose 369 mg/dL (83-110); Potassium 3.9 mmol/L (3.5-5.1); Protein, Total 5.1 g/dL (5.8-8.1); Sodium 141 mmol/L (136-145)
[2024-11-18 05:35] LABS: Anisocytosis SLIGHT = 6-15 cells HPF (0-5); Band 6 % (5-11); Hypochromia SLIGHT = 6-15 cells HPF (0-5); Large Platelets 8.8 % (0-5); Lymphocytes 3 % (21-51); Microcytosis SLIGHT = 6-15 cells HPF (0-5); Monocytes 3 % (0-10); Neutrophil 88 % (42-75); Platelet Adequacy Comment Platelets Normal; Polychromasia SLIGHT = 2-3 cells HPF (0-2); Target Cells SLIGHT = 2-5 cells HPF (0-1); Toxic Granulation SLIGHT
[2024-11-18 11:54] LABS: Vancomycin, Trough 18.4 ug/mL
[2024-11-18] MEDS: Furosemide 100 MG (10 mL) VIAL SLOW IVP SCH (12:27)
[2024-11-18] MEDS: Vancomycin HCl 500 MG in Sodium Chloride 0.9% 100 ML IVPB SCH (13:23)
[2024-11-18] MEDS ORDERED: Vasopressin 20 UNITS in Sodium Chloride 0.9% 50 ML IV SCH (13:30)
[2024-11-18] MEDS: Vecuronium 10 MG VIAL IVP SCH (13:52)
[2024-11-18] MEDS: Vasopressin In 0.9 % NaCl 40 UNIT in Premix 1 BAG IV SCH (13:52)
[2024-11-18] MEDS: Hydrocortisone Sod Succ/PF 100 mg/2 ml Vial IVP SCH ×2 (14:09→20:18)
[2024-11-18] MEDS: Water For Inject, Bacteriostat 30 ML ONE (14:13)
[2024-11-18] MEDS: Senokot 8.6 MG TAB PO SCH (15:32)
[2024-11-18] MEDS: Lactated Ringer's 500 ML IV SCH (15:33)
[2024-11-18] MEDS: Lactulose 20 GM (30 mL) UDCUP PO SCH ×2 (16:55→20:28)
[2024-11-18] MEDS: Lactated Ringer's 1,000 ML IV SCH (18:00)
[2024-11-18] MEDS: Propofol 1,000 MG/100 ML VIAL IV ONE (23:27)
[2024-11-18] MEDS: Propofol 1,000 MG/100 ML VIAL IV PRN (23:28)
[2024-11-18] MEDS ORDERED: Propofol BOLUS 1,000 MG/100 ML VIAL IV PRN (23:30)
[2024-11-19 04:48] LABS: Hematocrit 21.7 % (36.0-47.0); Hemoglobin 7.5 g/dL (12.0-16.0); Mean Corpuscular HGB CONC 34.6 g/dL (32.0-36.0); Mean Corpuscular Hemoglobin 27.1 pg (27.0-31.0); Mean Corpuscular Volume 78.3 fL (78.0-98.0); Mean Platelet Volume 13.4 fL (7.4-10.4); Platelet Count 309 10x3/uL (130-400); RBC Distribution Width 15.1 % (11.5-14.5); Red Blood Cell (RBC) Count 2.77 mill/uL (4.20-5.40)
[2024-11-19 05:41] LABS: Band 7 % (5-11); Lymphocytes 2 % (21-51); Neutrophil 91 % (42-75); Platelet Adequacy Comment Platelets Normal; Polychromasia SLIGHT = 2-3 cells HPF (0-2); Target Cells SLIGHT = 2-5 cells HPF (0-1)
[2024-11-19 05:42] LABS: ALT (SGPT) 35 U/L (Less than 34); AST (SGOT) 78 U/L (11-34); Alkaline Phosphatase 93 U/L (40-110); Anion Gap 24 mmol/L (10-20); BUN (Urea Nitrogen) 113 mg/dL (9.8-20.1); Bilirubin, Total 11.1 mg/dL (0.3-1.2); Calc. Creatinine Clearance 17 mL/min (70-130); Calcium 8.3 mg/dL (7.8-10.44); Carbon Dioxide 15 mmol/L (23-31); Chloride 112 mmol/L (98-107); Estimated GFR 10; Globulin 4.6 g/dL (2.4-3.5); Glucose 255 mg/dL (83-110); Potassium 5.9 mmol/L (3.5-5.1); Protein, Total 5.6 g/dL (5.8-8.1); Sodium 145 mmol/L (136-145)
[2024-11-19] MEDS: Senokot 8.6 MG TAB PO SCH (08:47)
[2024-11-19] MEDS: LOKELMA 10 GM PACKET PO SCH (09:04)
[2024-11-19 10:44] VITALS: BP 117/56
[2024-11-19 13:16] VITALS: TEMP 97.9
[2024-11-19 13:43] LABS: Vancomycin, Trough 17.8 ug/mL
[2024-11-19] MEDS ORDERED: Vancomycin HCl 500 MG in Sodium Chloride 0.9% 100 ML IVPB SCH (14:00)
[2024-11-19] MEDS ORDERED: Morphine 2 MG/ML VIAL SLOW IVP PRN (14:34)
[2024-11-19] MEDS ORDERED: Scopolamine 1 mg/72 hour Patch TD PRN (14:56)
[2024-11-19] MEDS: Morphine 4 MG/ML VIAL SLOW IVP PRN ×2 (15:12→16:47)
[2024-11-19] MEDS ORDERED: Glycopyrrolate 0.4 MG/ 2 ML VIAL SLOW IVP PRN (15:15)
[2024-11-19] MEDS: Lorazepam 2 MG/ML VIAL SLOW IVP PRN ×2 (16:00→17:01)
[2024-11-19] MEDS: Morphine 4 MG/ML VIAL ONE (16:47)
== END 2024-11-19 17:10 | disposition expired | DRG 870 ==
LOC: ERS 08:17 → CCU 10:28
PROVIDERS: ADMIT Internal Medicine; ATTEND Internal Medicine
PROC: 0T9B70Z Drainage of Bladder with Drainage Device, Via Natural or Artificial Opening (ICD-10-PCS; principal; 2024-11-10)
PROC: 5A1955Z Respiratory Ventilation, Greater than 96 Consecutive Hours (ICD-10-PCS; 2024-11-10)
PROC: 06HY33Z Insertion of Infusion Device into Lower Vein, Percutaneous Approach (ICD-10-PCS; 2024-11-10)
PROC: 0BH17EZ Insertion of Endotracheal Airway into Trachea, Via Natural or Artificial Opening (ICD-10-PCS; 2024-11-10)
PROC: 4A133R1 Monitoring of Arterial Saturation, Peripheral, Percutaneous Approach (ICD-10-PCS; 2024-11-10)
PROC: 3E03329 Introduction of Other Anti-infective into Peripheral Vein, Percutaneous Approach (ICD-10-PCS; 2024-11-10)
PROC: 3E033XZ Introduction of Vasopressor into Peripheral Vein, Percutaneous Approach (ICD-10-PCS; 2024-11-10)
PROC: 30233J1 Transfusion of Nonautologous Serum Albumin into Peripheral Vein, Percutaneous Approach (ICD-10-PCS; 2024-11-10)
PROC: 0BJ08ZZ Inspection of Tracheobronchial Tree, Via Natural or Artificial Opening Endoscopic (ICD-10-PCS; 2024-11-18)
DX: A41.51 Sepsis due to Escherichia coli [E. coli] (principal); G93.41 Metabolic encephalopathy; I21.A1 Myocardial infarction type 2; J10.00 Influenza due to other identified influenza virus with unspecified type of pneumonia; R65.21 Severe sepsis with septic shock; J96.01 Acute respiratory failure with hypoxia; J15.20 Pneumonia due to staphylococcus, unspecified; N17.9 Acute kidney failure, unspecified; E87.20 Acidosis, unspecified; Z51.5 Encounter for palliative care; Z79.899 Other long term (current) drug therapy; Z90.710 Acquired absence of both cervix and uterus; Z98.890 Other specified postprocedural states; Z66 Do not resuscitate; N18.30 Chronic kidney disease, stage 3 unspecified; I12.9 Hypertensive chronic kidney disease with stage 1 through stage 4 chronic kidney disease, or unspecified chronic kidney disease; E87.6 Hypokalemia; E83.39 Other disorders of phosphorus metabolism; E11.65 Type 2 diabetes mellitus with hyperglycemia
CPT/HCPCS: 31500; 36415; 36416; 36556; 36600; 43753; 51702; 70450; 71045; 74018; 74176; 80048; 80053; 80202; 81001; 82805; 83605; 83690; 83735; 83880; 84100; 84145; 84484; 85025; 85060; 87040; 87070; 87077; 87081; 87086; 87149; 87186; 87205; 87449; 87899; 93005; 94002; 94003; 94640; 94660; 96365; 96366; 96367; 96368; J0171; J0456; J0696; J1644; J1720; J1815; J1940; J2060; J2270; J2272; J2470; J2704; J3010; J3370; J3475; J3480; J7030; J7050; J7070; J7120; J7620; P9047